=== PATIENT | female | born 1955 | race Caucasian/White ===

== ENCOUNTER 2016-10-30 11:24 | Inpatient (IN) | payer MEDICAID ==
[2016-10-30 11:57] LABS: % BASOPHILS 0.9 % (0.0-2.0); % EOSINOPHILS 1.3 % (0.0-5.0); % LYMPHOCYTES 42.6 % (20.0-50.0); % MONOCYTES 9.2 % (2.0-10.0); HEMOGLOBIN 14.4 gm/dL (11.7-15.5); MEAN CELL VOLUME 90.3 fl (81-100); MEAN CORPUSCULAR HEMOGLOBIN 30.6 pg (27.0-31.0); MEAN CORPUSCULAR HGB CONC 33.9 pg (28.0-36.0); NEUTROPHILE ABSOLUTE 2.8 Th/cmm (1.8-8.0); PLATELET COUNT 225 Th/cmm (150-400); RED CELL DISTRIBUTION WIDTH 12.6 % (11.5-20.0)
[2016-10-30 11:59] LABS: HEMATOCRIT 42.5 % (35.0-45.0); WHITE BLOOD COUNT 6.2 Th/cmm (4.8-10.8)
--- NOTE | 2016-10-30 12:13 | ED Physician Chart ---
ED Chief Complaint/HPI - Patient Information Date Seen:: 10/30/16 Time Seen:: 12:09 Chief Complaint:: DIARRHEA AND ABD CRAMPING SINCE LAST EVENING History of Present Illness:: The patient had 3 episodes of non-bloody diarrhea last evening following dinner. She also had a fourth episode early this a.m. The diarrhea was accompanied by a cramping pain that she rated as 8/10 in severity last evening and 1-2/10 this a.m. There were no relieving or exacerbating factors. The pain is localized to the right lower quadrant and does not radiate into the back or down into the right lower extremity. Patient denies any nausea or vomiting. She's had no chest pain or respiratory distress. She has a past medical history of both hypertension and diabetes. It was noted that her blood sugar was in the high 200 range earlier this a.m. Allergies:: Allergies Allergy/AdvReac Type Severity Reaction Status Date / Time No Known Allergies Allergy Verified 01/02/16 14:15 Vitals:: Vital Signs - 8 hr 10/30/16 11:26 Temp 97.3 F HR 67 RR 18 BP 140/90 O2 Sat % 94 ED Review of Systems - Review of Systems General/Constitutional: No chills, No weakness, No diaphoresis, No loss of appetite, Other (the patient believes that she had subjective fever last evening.) Skin: No skin lesions, No rash, No bruising Head: No headache, No light-headedness Eyes: No loss of vision, No pain, No diplopia ENT: No earache, No sore throat, No tinnitus Neck: No neck pain, No swelling, No thyromegaly, No stiffness, No mass noted Cardio Vascular: No chest pain, No palpitations, No edema Pulmonary: No SOB, Cough (patient had a dry cough recently. She is exposed to secondhand smoke by other members at the [id number].) GI: No nausea, No vomiting, Diarrhea, Pain, No hematochezia, No constipation, No hematemesis G/U: No dysuria, No frequency, No hematuria Applications Specialist: No vaginal discharge Musculoskeletal: No bone or joint pain, No muscle pain Endocrine: No polyuria, No polydipsia Psychiatric: Prior psych history, No depression, No suicidal ideation, Other ( schizoaffective disorder.) Hematopoietic: No bruising, No lymphadenopathy Allergic/Immuno: No urticaria, No angioedema Neurological: No syncope, No focal symptoms, No weakness, No paresthesia, No headache, No seizure, No dizziness, No confusion, No vertigo ED Past Medical History - Past Medical History Past Medical History: HTN, DM Social History: Non Smoker, No Alcohol, No Drug Use, Single, Care Facility Surgical History: None Psychiatricy History: Other (schizoaffective disorder) Medication: Reviewed Family Medical History - Family Member Nephew History Unknown: Yes Ethnicity: Living Status: Unknown Hx Family Cancer: (UNKNOWN) Hx Family Coronary Artery Disease: Yes (FATHER SIDE) Hx Family Congestive Heart Failure: (UNKNOWN) Hx Family Hypertension: Yes (FATHER SIDE) Hx Family Stroke: Yes (FATHER SIDE) Hx Family Diabetes: Yes (MOTHER SIDE) Hx Family Seizures: No Hx Family Dementia: No Hx Family AIDS: No Hx Family HIV: No Hx Family COPD: No Hx Family Hepatitis: No Hx Family Psychiatric Problems: No Hx Family Tuberculosis: No ED Physical Exam - Physical Examination General/Constitutional: Awake, Well-developed, well-nourished, Alert, No distress, GCS 15, Non-toxic appearing, Ambulatory Head: Atraumatic Eyes: Lids, conjuctiva normal, PERRL, EOMI Skin: Nl inspection, No rash, No skin lesions, No ecchymosis, Well hydrated, No lymphadenopathy ENMT: External ears, nose nl, TM canals nl, Nasal exam nl, Lips, teeth, gums nl , Oropharynx nl Neck: Nontender, No JVD, No nuchal rigidity, No mass, No stridor Respiratory: Nl effort/Exclusion, Clear to Auscultation, No Wheeze/Rhonchi/Rales Cardio Vascular: RRR, No murmur, gallop, rubs, NL S1 S2 Other Cardio Vascular comments:: Pulses all 4 extremities. GI: No tenderness/rebounding/guarding, No organomegaly, No hernia, Normal BS's, Nondistended, No mass/bruits, No McBurney tenderness Other GI comments:: Rectal examination deferred at my discretion. : No CVA tenderness Extremities: No tenderness or effusion, Full ROM, normal strength in all extremities, No edema Other Extremities comments:: Tenderness and normal Laurence's sign ED Labs/Radiology/EKG Results - Lab Results Results: Laboratory Tests 10/30/16 11:51 WBC 6.2 D RBC 4.70 Hgb 14.4 Hct 42.5 D MCV 90.3 MCH 30.6 MCHC Differential 33.9 RDW 12.6 Plt Count 225 MPV 8.0 Neutrophils % 46.0 Lymphocytes % 42.6 Monocytes % 9.2 Eosinophils % 1.3 Basophils % 0.9 Laboratory Tests 10/30/16 10/30/16 10/30/16 11:51 11:51 11:51 WBC 6.2 D RBC 4.70 Hgb 14.4 Hct 42.5 D MCV 90.3 MCH 30.6 MCHC Differential 33.9 RDW 12.6 Plt Count 225 MPV 8.0 Neutrophils % 46.0 Lymphocytes % 42.6 Monocytes % 9.2 Eosinophils % 1.3 Basophils % 0.9 Sodium 130 L Potassium 4.1 Chloride 102 Carbon Dioxide 22.1 Anion Gap 10.0 BUN 17 Creatinine 0.9 Est GFR ( Amer) > 60.0 Est GFR (Non-Af Amer) > 60.0 BUN/Creatinine Ratio 18.9 Glucose 292 H Hemoglobin A1c % Whole Bld Lactic Acid 1.57 Calcium 9.8 Total Bilirubin 0.4 AST 28 ALT 19 Alkaline Phosphatase 78 Total Protein 6.8 Albumin 3.9 Globulin 2.9 Albumin/Globulin Ratio 1.3 Amylase Urine Color Urine Clarity Urine pH Ur Specific [place] Urine Protein Urine Glucose (UA) Urine Ketones Urine Blood Urine Nitrate Urine Bilirubin Urine Urobilinogen Ur Leukocyte Esterase Urine RBC Urine WBC Ur Epithelial Cells Urine Bacteria 10/30/16 10/30/16 10/30/16 11:51 11:51 12:30 WBC RBC Hgb Hct MCV MCH MCHC Differential RDW Plt Count MPV Neutrophils % Lymphocytes % Monocytes % Eosinophils % Basophils % Sodium Potassium Chloride Carbon Dioxide Anion Gap BUN Creatinine Est GFR ( Amer) Est GFR (Non-Af Amer) BUN/Creatinine Ratio Glucose Hemoglobin A1c % 14.1 H Whole Bld Lactic Acid Calcium Total Bilirubin AST ALT Alkaline Phosphatase Total Protein Albumin Globulin Albumin/Globulin Ratio Amylase 17 L Urine Color YELLOW Urine Clarity SLIGHT CLOUDY Urine pH 6.0 Ur Specific [place] 1.010 Urine Protein NEGATIVE Urine Glucose (UA) >=1000 H Urine Ketones NEGATIVE Urine Blood NEGATIVE Urine Nitrate NEGATIVE Urine Bilirubin NEGATIVE Urine Urobilinogen 0.2 Ur Leukocyte Esterase NEGATIVE Urine RBC NONE SEEN Urine WBC NONE SEEN Ur Epithelial Cells OCCASIONAL Urine Bacteria NONE SEEN ED Assessment - Assessment General Assessment: CASE SUMMARY: the 61-year-old female presents with four episodes of diarrhea that began last evening. The diarrhea was accompanied by cramping abdominal pain predominantly in the lower abdomen. The patient had no associated vomiting , fever or chills. On physical examination the abdomen was soft with mild tenderness in both the right and the left lower quadrant. Laboratory studies showed hyperglycemia in the 300 range, no leukocytosis, normal renal function studies in normal hepatic function studies. CT scan of the abdomen and pelvis was positive for cholelithiasis and a 5.8 solid mass extending from the lower pole of the left kidney. This was suspicious for possible malignancy. The case was discussed with Dr. Lockwood and the patient was admitted to his service for further diagnostic evaluation and treatment as indicated. MDM DDX DIARRHEA AND ABDOMINAL CRAMPING: NOT Acute cholecystitis based on the CT scan. NOT Acute pancreatitis based on a low amylase level. NOT Acute appendicitis based on negative CT scan of the abdomen. NOT Acute pyelonephritis based on negative urinalysis. NOT Ischemic bowel disease based on the patient's history, physical examination and laboratory studies. Also the CT scan was negative for any evidence of ischemic colitis. NOT Ketoacidosis based on laboratory studies. ED Septic Shock - . Is Septic Shock (SBP<90, OR Lactate>4 mmol\L) present?: No - <6hrs of presentation: Vital Signs: Vital Signs - 8 hr 10/30/16 11:26 Temp 97.3 F HR 67 RR 18 BP 140/90 O2 Sat % 94 ED Reassessment (Disposition) - Reassessment Reassessment Condition:: Improved - Diagnosis Diagnosis:: DIABETES WITH HYPERGLYCEMIA, DIARRHEA UNCLEAR CAUSE, LT RENAL MASS - Aftercare/Follow up Instructions Aftercare/Follow-Up Instructions:: Counseled pt regarding lab results/diagnosis & need follow up ( This is) - Patient Disposition Discharge/Transfer:: Acute Care w/in this hosp Accepting Physician:: DR. FARIAS ED Discharge Plan - Patient Disposition Admit/Discharge/Transfer: Acute Care w/in this hosp Condition at Disposition: Improved
[2016-10-30 12:14] LABS: ALB/GLOB RATIO 1.3 (1.0-1.8); ALKALINE PHOSPHATASE 78 U/L (34-104); BILIRUBIN,TOTAL 0.4 mg/dL (0.3-1.0); BUN - UREA NITROGEN 17 mg/dL (7-25); BUN/CREATININE RATIO 18.9; CALCIUM SERUM 9.8 mg/dL (8.6-10.3); CARBON DIOXIDE 22.1 mEq/L (21.0-31.0); CHLORIDE 102 mEq/L (98-107); CREATININE - SERUM 0.9 mg/dL (0.6-1.2); GLUCOSE 292 mg/dL (70-105); POTASSIUM SERUM 4.1 mEq/L (3.5-5.1); SGOT 28 U/L (13-39); SGPT/ALT 19 U/L (7-52); SODIUM SERUM 130 mEq/L (136-145)
[2016-10-30] MEDS ORDERED: Sodium Chloride 0.9% 2,000 ML IV ONE (12:41)
[2016-10-30 12:50] LABS: URINE BILIRUBIN NEGATIVE (NEGATIVE); URINE BLOOD NEGATIVE (NEGATIVE); URINE COLOR YELLOW; URINE GLUCOSE (UA) >=1000 mg/dL (NEGATIVE); URINE KETONE NEGATIVE (NEGATIVE); URINE PROTEIN NEGATIVE (NEGATIVE); URINE UROBILINOGEN 0.2 E.U./dL (0.2 - 1.0)
[2016-10-30 12:52] LABS: URINE BACTERIA NONE SEEN /hpf (NONE SEEN); URINE EPITHELIAL CELLS OCCASIONAL /lpf (FEW); URINE RBC NONE SEEN /hpf (0-5); URINE WBC NONE SEEN /hpf (0-5)
--- NOTE | 2016-10-30 14:43 | Internal Medicine Prog Note ---
Internal Medicine Subjective - Subjective Service Date: 10/30/16 ([id number]) Internal Medicine Objective - Results Result Diagrams: 10/30/16 11:51 10/30/16 11:51 Recent Labs: Laboratory Last Values WBC 6.2 Th/cmm (4.8-10.8) D 10/30/16 11:51 RBC 4.70 Mil/cmm (3.80-5.10) 10/30/16 11:51 Hgb 14.4 gm/dL (11.7-15.5) 10/30/16 11:51 Hct 42.5 % (35.0-45.0) D 10/30/16 11:51 MCV 90.3 fl (81-100) 10/30/16 11:51 MCH 30.6 pg (27.0-31.0) 10/30/16 11:51 MCHC Differential 33.9 pg (28.0-36.0) 10/30/16 11:51 RDW 12.6 % (11.5-20.0) 10/30/16 11:51 Plt Count 225 Th/cmm (150-400) 10/30/16 11:51 MPV 8.0 fl 10/30/16 11:51 Neutrophils % 46.0 % (40.0-80.0) 10/30/16 11:51 Lymphocytes % 42.6 % (20.0-50.0) 10/30/16 11:51 Monocytes % 9.2 % (2.0-10.0) 10/30/16 11:51 Eosinophils % 1.3 % (0.0-5.0) 10/30/16 11:51 Basophils % 0.9 % (0.0-2.0) 10/30/16 11:51 Sodium 130 mEq/L (136-145) L 10/30/16 11:51 Potassium 4.1 mEq/L (3.5-5.1) 10/30/16 11:51 Chloride 102 mEq/L (98-107) 10/30/16 11:51 Carbon Dioxide 22.1 mEq/L (21.0-31.0) 10/30/16 11:51 Anion Gap 10.0 (7.0-16.0) 10/30/16 11:51 BUN 17 mg/dL (7-25) 10/30/16 11:51 Creatinine 0.9 mg/dL (0.6-1.2) 10/30/16 11:51 Est GFR ( Amer) > 60.0 ml/min (>90) 10/30/16 11:51 Est GFR (Non-Af Amer) > 60.0 ml/min 10/30/16 11:51 BUN/Creatinine Ratio 18.9 10/30/16 11:51 Glucose 292 mg/dL (70-105) H 10/30/16 11:51 Hemoglobin A1c % 14.1 % (4.0-6.0) H 10/30/16 11:51 Whole Bld Lactic Acid 1.57 mmol/L (0.60-1.99) 10/30/16 11:51 Calcium 9.8 mg/dL (8.6-10.3) 10/30/16 11:51 Total Bilirubin 0.4 mg/dL (0.3-1.0) 10/30/16 11:51 AST 28 U/L (13-39) 10/30/16 11:51 ALT 19 U/L (7-52) 10/30/16 11:51 Alkaline Phosphatase 78 U/L (34-104) 10/30/16 11:51 Total Protein 6.8 gm/dL (6.0-8.3) 10/30/16 11:51 Albumin 3.9 gm/dL (3.7-5.3) 10/30/16 11:51 Globulin 2.9 gm/dL 10/30/16 11:51 Albumin/Globulin Ratio 1.3 (1.0-1.8) 10/30/16 11:51 Amylase 17 U/L (29-103) L 10/30/16 11:51 Urine Source RANDOM 10/30/16 12:30 Urine Color YELLOW 10/30/16 12:30 Urine Clarity SLIGHT CLOUDY (CLEAR) 10/30/16 12:30 Urine pH 6.0 (4.6 - 8.0) 10/30/16 12:30 Ur Specific [place] 1.010 (1.005-1.030) 10/30/16 12:30 Urine Protein NEGATIVE mg/dL (NEGATIVE) 10/30/16 12:30 Urine Glucose (UA) >=1000 mg/dL (NEGATIVE) H 10/30/16 12:30 Urine Ketones NEGATIVE mg/dL (NEGATIVE) 10/30/16 12:30 Urine Blood NEGATIVE (NEGATIVE) 10/30/16 12:30 Urine Nitrate NEGATIVE (NEGATIVE) 10/30/16 12:30 Urine Bilirubin NEGATIVE (NEGATIVE) 10/30/16 12:30 Urine Urobilinogen 0.2 E.U./dL (0.2 - 1.0) 10/30/16 12:30 Ur Leukocyte Esterase NEGATIVE (NEGATIVE) 10/30/16 12:30 Urine RBC NONE SEEN /hpf (0-5) 10/30/16 12:30 Urine WBC NONE SEEN /hpf (0-5) 10/30/16 12:30 Ur Epithelial Cells OCCASIONAL /lpf (FEW) 10/30/16 12:30 Urine Bacteria NONE SEEN /hpf (NONE SEEN) 10/30/16 12:30 - Physical Exam Vitals and I&O: Vital Signs Temp 98.0 F 10/30/16 13:51 Pulse 66 10/30/16 13:51 Resp 18 10/30/16 13:51 BP 127/71 10/30/16 13:51 Pulse Ox 99 10/30/16 13:51 Active Medications: Current Medications Sodium Chloride (Nacl 0.9%) 2,000 mls @ 0 mls/hr IV .Q0M ONE PRN Reason: Wide Open Stop: 10/30/16 12:42 Last Admin: 10/30/16 12:52 Dose: 999 mls/hr Internal Medicine Assmt/Plan - Assessment Assessment: INTRACTABLE DIARRHEA HYPONATREMIA DM-2 HTN
[2016-10-30] MEDS ORDERED: Albuterol Nebulizer 2.5mg/3mL HHN PRN (14:49)
[2016-10-30] MEDS ORDERED: Ipratropium Neb 0.5 mg/2.5 mL UD HHN PRN (14:49)
[2016-10-30] MEDS ORDERED: Maalox 30 mL Cup PO PRN (14:49)
[2016-10-30] MEDS ORDERED: guaiFENesin 200 MG/10 ML UDC PO PRN (14:49)
[2016-10-30] MEDS ORDERED: D5-0.9%NS 1,000 ML IV SCH (15:00)
--- NOTE | 2016-10-30 16:30 | History & Physical ---
ADMIT DATE: 10/30/2016 CHIEF COMPLAINT: Intractable diarrhea and abdominal cramping. HISTORY OF PRESENT ILLNESS: This is a 61-year-old female who is a resident of [facility] who is brought here to [facility] for 1-day history of diarrhea, abdominal cramping and nausea. According to the patient, after she ate dinner last night, the patient had 3 episodes of diarrhea and around the middle of the night, the patient stated that she even had more diarrhea. For this reason, the patient was brought to the ER by her caregiver. The patient denies any chest pain or shortness of breath. PAST MEDICAL HISTORY: Hypertension, diabetes. SOCIAL HISTORY: The patient is a [facility] resident. PAST SURGICAL HISTORY: None per patient. PSYCHIATRIC HISTORY: Schizoaffective. MEDICATIONS: Please see medication reconciliation record. REVIEW OF SYSTEMS: GENERAL: Denies any fevers or chills. CARDIOVASCULAR: Denies any chest pain. RESPIRATORY: Denies any shortness of breath. GASTROINTESTINAL: Denies any nausea, vomiting or any diarrhea at this time. GENITOURINARY: Denies dysuria. All other systems are reviewed by me negative. PHYSICAL EXAMINATION: EXTREMITIES: The patient is well developed, well nourished, no acute distress. VITAL SIGNS: Temperature 98.0, heart rate 66, blood pressure 137/71, respirations 18, O2 99. HEENT: Head: Normocephalic, atraumatic. NECK: Supple. No mass. LUNGS: Clear bilaterally. HEART: Regular rate and rhythm. ABDOMEN: Soft, nontender. LABORATORY DATA: WBC 6.2, H and H 14.4 and 42.5, platelets 225. Sodium 130, potassium 4.1, chloride 102, BUN 17, creatinine 0.9, hemoglobin A1c of 14.1. Amylase of 17. ASSESSMENT: Intractable diarrhea, abdominal pain, hyponatremia, hypertension, diabetes. PLAN: The patient to be admitted to the med/surg unit. The patient will have a GI consultation with Dr. Suarez. The patient will be kept on a full liquid diet. We will send stool for cultures. IV fluids for hydration. Continue to monitor the patient. JOB# [id number]
[2016-10-30] MEDS: Sodium Chloride 0.9% 1,000 ML IV SCH (16:47)
[2016-10-30] MEDS: Insulin Detemir 100 units/mL 10mL Vial SUBQ SCH (20:54)
[2016-10-31] MEDS: Sodium Chloride 0.9% 1,000 ML IV SCH (04:55)
[2016-10-31 07:15] LABS: % EOSINOPHILS 0.9 % (0.0-5.0)
[2016-10-31 07:23] LABS: % LYMPHOCYTES 37.7 % (20.0-50.0); % MONOCYTES 9.4 % (2.0-10.0); HEMATOCRIT 46.3 % (35.0-45.0); HEMOGLOBIN 15.6 gm/dL (11.7-15.5); MEAN CELL VOLUME 90.4 fl (81-100); MEAN CORPUSCULAR HEMOGLOBIN 30.4 pg (27.0-31.0); MEAN CORPUSCULAR HGB CONC 33.7 pg (28.0-36.0); MEAN PLATELET VOLUME 8.8 fl; NEUTROPHILE ABSOLUTE 3.3 Th/cmm (1.8-8.0); PLATELET COUNT 244 Th/cmm (150-400); RED BLOOD COUNT 5.12 Mil/cmm (3.80-5.10); WHITE BLOOD COUNT 6.5 Th/cmm (4.8-10.8)
[2016-10-31 07:37] LABS: ANION GAP 9.1 (7.0-16.0); BUN - UREA NITROGEN 10 mg/dL (7-25); BUN/CREATININE RATIO 12.5; CALCIUM SERUM 10.1 mg/dL (8.6-10.3); CARBON DIOXIDE 25.9 mEq/L (21.0-31.0); CHLORIDE 101 mEq/L (98-107); CREATININE - SERUM 0.8 mg/dL (0.6-1.2); GLUCOSE 223 mg/dL (70-105); SODIUM SERUM 132 mEq/L (136-145)
[2016-10-31] MEDS: Ferrous Sulfate 325 MG TAB PO SCH (08:58)
--- NOTE | 2016-10-31 10:38 | Internal Medicine Prog Note ---
Internal Medicine Subjective - Subjective Service Date: 10/31/16 Patient seen and examined:: with staff Patient is:: awake Per staff patient has:: no adverse event Internal Medicine Objective - Results Result Diagrams: 10/31/16 06:10 10/31/16 06:10 Recent Labs: Laboratory Last Values WBC 6.5 Th/cmm (4.8-10.8) 10/31/16 06:10 RBC 5.12 Mil/cmm (3.80-5.10) H 10/31/16 06:10 Hgb 15.6 gm/dL (11.7-15.5) H 10/31/16 06:10 Hct 46.3 % (35.0-45.0) H 10/31/16 06:10 MCV 90.4 fl (81-100) 10/31/16 06:10 MCH 30.4 pg (27.0-31.0) 10/31/16 06:10 MCHC Differential 33.7 pg (28.0-36.0) 10/31/16 06:10 RDW 13.0 % (11.5-20.0) 10/31/16 06:10 Plt Count 244 Th/cmm (150-400) 10/31/16 06:10 MPV 8.8 fl 10/31/16 06:10 Neutrophils % 52.0 % (40.0-80.0) 10/31/16 06:10 Lymphocytes % 37.7 % (20.0-50.0) 10/31/16 06:10 Monocytes % 9.4 % (2.0-10.0) 10/31/16 06:10 Eosinophils % 0.9 % (0.0-5.0) 10/31/16 06:10 Basophils % 0.0 % (0.0-2.0) 10/31/16 06:10 Sodium 132 mEq/L (136-145) L 10/31/16 06:10 Potassium 4.0 mEq/L (3.5-5.1) 10/31/16 06:10 Chloride 101 mEq/L (98-107) 10/31/16 06:10 Carbon Dioxide 25.9 mEq/L (21.0-31.0) 10/31/16 06:10 Anion Gap 9.1 (7.0-16.0) 10/31/16 06:10 BUN 10 mg/dL (7-25) 10/31/16 06:10 Creatinine 0.8 mg/dL (0.6-1.2) 10/31/16 06:10 Est GFR ( Amer) > 60.0 ml/min (>90) 10/31/16 06:10 Est GFR (Non-Af Amer) > 60.0 ml/min 10/31/16 06:10 BUN/Creatinine Ratio 12.5 10/31/16 06:10 Glucose 223 mg/dL (70-105) H 10/31/16 06:10 POC Glucose 242 MG/DL (70 - 105) H 10/31/16 06:38 Hemoglobin A1c % 14.1 % (4.0-6.0) H 10/30/16 11:51 Whole Bld Lactic Acid 1.57 mmol/L (0.60-1.99) 10/30/16 11:51 Calcium 10.1 mg/dL (8.6-10.3) 10/31/16 06:10 Total Bilirubin 0.4 mg/dL (0.3-1.0) 10/30/16 11:51 AST 28 U/L (13-39) 10/30/16 11:51 ALT 19 U/L (7-52) 10/30/16 11:51 Alkaline Phosphatase 78 U/L (34-104) 10/30/16 11:51 Total Protein 6.8 gm/dL (6.0-8.3) 10/30/16 11:51 Albumin 3.9 gm/dL (3.7-5.3) 10/30/16 11:51 Globulin 2.9 gm/dL 10/30/16 11:51 Albumin/Globulin Ratio 1.3 (1.0-1.8) 10/30/16 11:51 Amylase 17 U/L (29-103) L 10/30/16 11:51 Urine Source RANDOM 10/30/16 12:30 Urine Color YELLOW 10/30/16 12:30 Urine Clarity SLIGHT CLOUDY (CLEAR) 10/30/16 12:30 Urine pH 6.0 (4.6 - 8.0) 10/30/16 12:30 Ur Specific [place] 1.010 (1.005-1.030) 10/30/16 12:30 Urine Protein NEGATIVE mg/dL (NEGATIVE) 10/30/16 12:30 Urine Glucose (UA) >=1000 mg/dL (NEGATIVE) H 10/30/16 12:30 Urine Ketones NEGATIVE mg/dL (NEGATIVE) 10/30/16 12:30 Urine Blood NEGATIVE (NEGATIVE) 10/30/16 12:30 Urine Nitrate NEGATIVE (NEGATIVE) 10/30/16 12:30 Urine Bilirubin NEGATIVE (NEGATIVE) 10/30/16 12:30 Urine Urobilinogen 0.2 E.U./dL (0.2 - 1.0) 10/30/16 12:30 Ur Leukocyte Esterase NEGATIVE (NEGATIVE) 10/30/16 12:30 Urine RBC NONE SEEN /hpf (0-5) 10/30/16 12:30 Urine WBC NONE SEEN /hpf (0-5) 10/30/16 12:30 Ur Epithelial Cells OCCASIONAL /lpf (FEW) 10/30/16 12:30 Urine Bacteria NONE SEEN /hpf (NONE SEEN) 10/30/16 12:30 - Physical Exam Vitals and I&O: Vital Signs Temp 99.1 F 10/31/16 09:00 Pulse 87 10/31/16 09:00 Resp 20 10/31/16 09:00 BP 155/79 10/31/16 09:00 Pulse Ox 97 10/31/16 09:00 Intake & Output 10/30/16 10/31/16 10/31/16 18:59 06:59 18:59 Intake Total 1500 Balance 1500 Weight (lbs) 145 lb 152 lb 12.8 oz Intake: Intake, IV Amount 1000 Sodium Chloride 0.9% 1, 1000 000 ml @ 100 mls/hr IV . Q10H ALONDRA Rx#:[id number] Oral 500 Other: # Voids 4 # Bowel Movements 0 Stool Characteristics Liquid Liquid Brown Active Medications: Current Medications Acetaminophen (Tylenol) 650 mg PO Q4HR PRN PRN Reason: Pain Or Fever above 101 Stop: 12/29/16 14:48 Al Hydrox/Mg Hydrox/Simethicone (Maalox) 30 ml PO Q6HR PRN PRN Reason: Dyspepsia Stop: 12/29/16 14:48 Albuterol Sulfate (Albuterol 2.5mg/3ml Neb Ud) 2.5 mg HHN Q2HRT PRN PRN Reason: Shortness of Breath or Wheeze Stop: 12/29/16 14:48 Alprazolam (Xanax) 0.25 mg PO DAILY ALONDRA PRN Reason: Protocol Stop: 12/30/16 08:59 Divalproex Sodium (Depakote Dr) 500 mg PO HS ALONDRA PRN Reason: Protocol Stop: 12/29/16 20:59 Escitalopram Oxalate (Lexapro) 20 mg PO DAILY ALONDRA PRN Reason: Protocol Stop: 12/30/16 08:59 Ferrous Sulfate (Iron) 325 mg PO DAILY ALONDRA Stop: 12/30/16 08:59 Last Admin: 10/31/16 08:58 Dose: 325 mg Gemfibrozil (Lopid) 600 mg PO BIDAC ALONDRA Stop: 12/29/16 16:29 Last Admin: 10/31/16 08:57 Dose: 600 mg Sodium Chloride (Nacl 0.9%) 1,000 mls @ 100 mls/hr IV .Q10H ALONDRA Stop: 12/29/16 14:59 Last Admin: 10/31/16 04:55 Dose: 100 mls/hr Insulin Detemir (Levemir Insulin) 20 units SUBQ HS [facility] Stop: 12/29/16 20:59 Last Admin: 10/30/16 20:54 Dose: 20 units Ipratropium [place] (Atrovent Neb 0.5mg/2.5ml) 0.5 mg HHN Q2HRT PRN PRN Reason: Shortness of Breath or Wheeze Stop: 12/29/16 14:48 Loratadine (Claritin) 10 mg PO DAILY [facility] Stop: 12/30/16 08:59 Last Admin: 10/31/16 08:58 Dose: 10 mg Ondansetron HCl (Zofran) 4 mg IV Q8H PRN PRN Reason: Nausea / Vomiting Stop: 12/29/16 14:48 Quetiapine Fumarate (Seroquel) 400 mg PO HS ALONDRA PRN Reason: Protocol Stop: 12/29/16 20:59 Temazepam (Restoril) 15 mg PO HS PRN; Protocol PRN Reason: SLEEP Stop: 12/29/16 20:59 General: weak, alert HEENT: NC/AT, PERRLA Neck: Supple Lungs: CTAB Cardiovascular: RRR, Normal S1, Normal S2, without murmur Abdomen: soft, non-tender, non-distended, positive bowel sound Extremities: excoriation Neurological: alert Internal Medicine Assmt/Plan - Assessment Assessment: INTRACTABLE DIARRHEA HYPONATREMIA DM-2 HTN - Plan Plan: ivf for hydration am labs collect stool for cx gi f/u continue current plan of care
[2016-10-31] MEDS ORDERED: INSULIN ASPART, RECOMBINANT 100 UNITS/ML SUBQ ONE ×2 (13:15)
[2016-10-31] MEDS: INSULIN ASPART SLIDING SCALE 100 UNITS/ML UNIT SUBQ SCH ×3 (14:13→20:59)
--- NOTE | 2016-10-31 14:33 | Diagnostic Imaging Report ---
CT scan abdomen and pelvis without intravenous contrast HISTORY: Diarrhea Total DLP equals 542 CTDI equals 10.4 Axial sections were obtained from the xiphoid process down to the pubic symphysis. The liver exhibits a bulbous contour. There is suggestion of a decrease in overall hepatic parenchymal density. The findings may be associated with fatty infiltration and should be correlated with liver function tests. No focal lesions. Multiple intraluminal calcification seen in the gallbladder consistent with cholelithiasis. The spleen is normal in size. No definite focal pancreatic lesions. The right kidney demonstrates mild perinephric stranding. No discrete focal lesions. No hydronephrosis. There is an approximate 5.8 cm solid mass extending off the lower pole of the left kidney. This is indeterminate. However the overall appearance is suspicious for malignancy. A scan following administration of intravenous contrast to provide additional characterization. No hydronephrosis. No bowel dilatation. Several diverticula scattered through the colon. The exam of the pelvis demonstrates preservation of normal fat planes. No abnormal soft tissue masses or abnormal fluid collections. Atherosclerotic calcification is noted. Degenerative changes seen within the spine. IMPRESSION: 1. Solid left renal mass worrisome for malignancy. A CT scan following administration of intravenous contrast would provide additional characterization. 2. Bilateral perinephric stranding. Changes related to inflammatory change or sequelae cannot be excluded. 3. Findings consistent with cholelithiasis 4. Diverticulosis
[2016-10-31] MEDS: Insulin Detemir 100 units/mL 10mL Vial SUBQ SCH (21:31)
--- NOTE | 2016-10-31 23:10 | Consultation ---
DATE OF CONSULTATION: 10/31/2016 The patient was seen, chart reviewed, discussed with staff. HISTORY OF PRESENT ILLNESS: The patient is a 61-year-old female with a history of schizoaffective disorder, admitted to medical floor with some abdominal cramping and diarrhea. The patient has been cooperative, said she is taking her medications. Denied feeling depressed, said that she has a history of mental illness, but she feels her medications are helping. She is currently on Seroquel and Lexapro. PAST PSYCHIATRIC HISTORY: Prior hospitalizations, history of schizoaffective disorder. PAST MEDICAL HISTORY: Diabetes, hypertension, and diarrhea. PSYCHOSOCIAL HISTORY: The patient resides in a [facility] facility. MENTAL STATUS EXAMINATION: The patient was cooperative, makes fair eye contact, slightly disheveled. Speech is monotonous. Affect is constricted. No audiovisual hallucinations, no delusional thoughts, no suicidal thoughts. She is oriented x 3. ASSESSMENT: Schizoaffective disorder. PLAN: We will continue Lexapro 20 mg daily, Seroquel 400 mg p.o. at bedtime, Ativan 0.5 mg q.6 hours p.r.n. anxiety. We will provide supportive measures. We will monitor closely. Thank you for the consultation. [facility]# [id number]
--- NOTE | 2016-10-31 23:38 | Consultation ---
DATE OF CONSULTATION: 10/31/2016 INPATIENT GASTROINTESTINAL CONSULTATION REFERRING PHYSICIAN: Dr. Lockwood. REASON FOR CONSULTATION: Diarrhea. HISTORY OF PRESENT ILLNESS: A 61-year-old female from a skilled facility, was brought to the hospital because of 1 day of diarrhea. The patient by the time I am seeing her states that her diarrhea has resolved. She has had formed stools and the nurse corroborates her story. The patient denies having any abdominal pain, nausea, vomiting, diarrhea at this time. Denies having any melena, hematochezia, hematemesis, or coffee ground emesis. PAST MEDICAL HISTORY: Hypertension, diabetes, schizoaffective disorder. PAST SURGICAL HISTORY: None to . FAMILY HISTORY: Noncontributory. SOCIAL HISTORY: No tobacco, alcohol or IV drug usage. Resident of a skilled facility. ALLERGIES: None. CURRENT MEDICATIONS: Tylenol, Maalox, albuterol, Xanax, Depakote, Lexapro, iron, Lopid, Levemir, Atrovent, Claritin, Zofran, Seroquel, and Restoril. REVIEW OF SYSTEMS: Ten point review of system was performed and the pertinent positive is diarrhea that has since resolved and schizoaffective disorder. All other systems were otherwise within normal limits. PHYSICAL EXAMINATION: VITAL SIGNS: Temperature 99, breathing 20, pulse of 93, blood pressure 150/88, satting 96%. GENERAL: In no apparent distress. EYES: Anicteric, normal conjunctivae. HEENT: Normocephalic, atraumatic. Moist mucous membranes. NECK: Soft, supple. CHEST: Clear. No effort. CARDIOVASCULAR: Regular rate and rhythm. ABDOMEN: Soft, nontender, nondistended. SKIN: Warm, dry. EXTREMITIES: Reveal no cyanosis. PSYCHOLOGIC: Alert and oriented x 3. LABORATORY DATA: Show white count 6.5, hemoglobin 15.6, platelets of 244. Total bilirubin 0.4, AST 28, ALT 19, alkaline phosphatase 78. IMPRESSION: A 61-year-old female with diarrhea that has since resolved. Etiology remains unknown, could have been due to medication, could have been due to an infection. The patient has not had a CAT scan; therefore I have ordered a CAT scan to further evaluate the colon. Stools studies should also be sent as well. PLAN: 1. Check CT abdomen and pelvis. 2. Check stool studies. 3. Continue supportive care. 4. Consider screening colonoscopy as an outpatient since the patient has never had one done. The patient should see her primary care provider to arrange this. Thank you for allowing me to participate. Please call me if there are any questions. JOB# [id number]
[2016-11-01] MEDS: INSULIN ASPART SLIDING SCALE 100 UNITS/ML UNIT SUBQ SCH ×4 (06:57→21:16)
[2016-11-01] MEDS: Ferrous Sulfate 325 MG TAB PO SCH (09:34)
--- NOTE | 2016-11-01 11:28 | Diagnostic Imaging Report ---
Ultrasound abdomen HISTORY: Abdominal pain COMPARISON: CT abdomen and pelvis performed on 10/31/2016 Technique: Sonography of the abdomen was performed in multiple planes. FINDINGS: The liver demonstrates increased echogenicity echogenicity with no evidence of focal lesions. The liver measures 18.5 cm. Gallstones are noted. The gallbladder wall measures 4 mm. The common bile duct measures 4 mm. Evaluation of the pancreas is limited due to bowel gas. The right kidney measures 12.3 x 5 cm . No evidence of focal lesions or hydronephrosis. The left kidney measures 11.2 x 5.2 cm. There is a left renal mass measuring 5.5 x 5.6 cm arising from the lower aspect of the kidney. Vascularity within the mass is noted. No evidence of hydronephrosis. The spleen measures 9.5 cm. IMPRESSION: 5.5 x 5.6 cm left renal mass most likely due to neoplastic process, possible renal cell carcinoma when compared to previous CT examination. Short-term follow-up CT renal mass protocol is recommended for further assessment. Cholelithiasis with mild prominent gallbladder wall. Please correlate clinically. If indicated, follow-up nuclear medicine HIDA scan may be obtained for further assessment Mild hepatomegaly with increased echogenicity of the liver which may be due to underlying fatty infiltration.
[2016-11-01] MEDS: Sodium Chloride 0.9% 1,000 ML IV SCH (11:55)
--- NOTE | 2016-11-01 12:20 | Internal Medicine Prog Note ---
Internal Medicine Subjective - Subjective Service Date: 11/01/16 (c/o abdominal pain) Patient seen and examined:: with staff Patient is:: awake Per staff patient has:: no adverse event Internal Medicine Objective - Results Result Diagrams: 10/31/16 06:10 10/31/16 06:10 Recent Labs: Laboratory Last Values WBC 6.5 Th/cmm (4.8-10.8) 10/31/16 06:10 RBC 5.12 Mil/cmm (3.80-5.10) H 10/31/16 06:10 Hgb 15.6 gm/dL (11.7-15.5) H 10/31/16 06:10 Hct 46.3 % (35.0-45.0) H 10/31/16 06:10 MCV 90.4 fl (81-100) 10/31/16 06:10 MCH 30.4 pg (27.0-31.0) 10/31/16 06:10 MCHC Differential 33.7 pg (28.0-36.0) 10/31/16 06:10 RDW 13.0 % (11.5-20.0) 10/31/16 06:10 Plt Count 244 Th/cmm (150-400) 10/31/16 06:10 MPV 8.8 fl 10/31/16 06:10 Neutrophils % 52.0 % (40.0-80.0) 10/31/16 06:10 Lymphocytes % 37.7 % (20.0-50.0) 10/31/16 06:10 Monocytes % 9.4 % (2.0-10.0) 10/31/16 06:10 Eosinophils % 0.9 % (0.0-5.0) 10/31/16 06:10 Basophils % 0.0 % (0.0-2.0) 10/31/16 06:10 Sodium 132 mEq/L (136-145) L 10/31/16 06:10 Potassium 4.0 mEq/L (3.5-5.1) 10/31/16 06:10 Chloride 101 mEq/L (98-107) 10/31/16 06:10 Carbon Dioxide 25.9 mEq/L (21.0-31.0) 10/31/16 06:10 Anion Gap 9.1 (7.0-16.0) 10/31/16 06:10 BUN 10 mg/dL (7-25) 10/31/16 06:10 Creatinine 0.8 mg/dL (0.6-1.2) 10/31/16 06:10 Est GFR ( Amer) > 60.0 ml/min (>90) 10/31/16 06:10 Est GFR (Non-Af Amer) > 60.0 ml/min 10/31/16 06:10 BUN/Creatinine Ratio 12.5 10/31/16 06:10 Glucose 223 mg/dL (70-105) H 10/31/16 06:10 POC Glucose 303 MG/DL (70 - 105) H 11/01/16 11:40 Hemoglobin A1c % 14.1 % (4.0-6.0) H 10/30/16 11:51 Whole Bld Lactic Acid 1.57 mmol/L (0.60-1.99) 10/30/16 11:51 Calcium 10.1 mg/dL (8.6-10.3) 10/31/16 06:10 Total Bilirubin 0.4 mg/dL (0.3-1.0) 10/30/16 11:51 AST 28 U/L (13-39) 10/30/16 11:51 ALT 19 U/L (7-52) 10/30/16 11:51 Alkaline Phosphatase 78 U/L (34-104) 10/30/16 11:51 Total Protein 6.8 gm/dL (6.0-8.3) 10/30/16 11:51 Albumin 3.9 gm/dL (3.7-5.3) 10/30/16 11:51 Globulin 2.9 gm/dL 10/30/16 11:51 Albumin/Globulin Ratio 1.3 (1.0-1.8) 10/30/16 11:51 Amylase 17 U/L (29-103) L 10/30/16 11:51 Urine Source RANDOM 10/30/16 12:30 Urine Color YELLOW 10/30/16 12:30 Urine Clarity SLIGHT CLOUDY (CLEAR) 10/30/16 12:30 Urine pH 6.0 (4.6 - 8.0) 10/30/16 12:30 Ur Specific [place] 1.010 (1.005-1.030) 10/30/16 12:30 Urine Protein NEGATIVE mg/dL (NEGATIVE) 10/30/16 12:30 Urine Glucose (UA) >=1000 mg/dL (NEGATIVE) H 10/30/16 12:30 Urine Ketones NEGATIVE mg/dL (NEGATIVE) 10/30/16 12:30 Urine Blood NEGATIVE (NEGATIVE) 10/30/16 12:30 Urine Nitrate NEGATIVE (NEGATIVE) 10/30/16 12:30 Urine Bilirubin NEGATIVE (NEGATIVE) 10/30/16 12:30 Urine Urobilinogen 0.2 E.U./dL (0.2 - 1.0) 10/30/16 12:30 Ur Leukocyte Esterase NEGATIVE (NEGATIVE) 10/30/16 12:30 Urine RBC NONE SEEN /hpf (0-5) 10/30/16 12:30 Urine WBC NONE SEEN /hpf (0-5) 10/30/16 12:30 Ur Epithelial Cells OCCASIONAL /lpf (FEW) 10/30/16 12:30 Urine Bacteria NONE SEEN /hpf (NONE SEEN) 10/30/16 12:30 - Physical Exam Vitals and I&O: Vital Signs Temp 99 F 11/01/16 08:00 Pulse 101 11/01/16 08:00 Resp 19 11/01/16 08:00 BP 108/73 11/01/16 08:00 Pulse Ox 100 11/01/16 08:00 Intake & Output 10/31/16 11/01/16 11/01/16 18:59 06:59 18:59 Intake Total 1600 400 Balance 1600 400 Weight (lbs) 152 lb 12.8 oz 150 lb 12.8 oz Intake: Intake, IV Amount 1000 Sodium Chloride 0.9% 1, 1000 000 ml @ 100 mls/hr IV . Q10H [facility] Rx#:[id number] Oral 600 400 Other: # Voids 5 3 # Bowel Movements 1 1 Stool Characteristics Formed Formed Brown Brown Active Medications: Current Medications Acetaminophen (Tylenol) 650 mg PO Q4HR PRN PRN Reason: Pain Or Fever above 101 Stop: 12/29/16 14:48 Al Hydrox/Mg Hydrox/Simethicone (Maalox) 30 ml PO Q6HR PRN PRN Reason: Dyspepsia Stop: 12/29/16 14:48 Albuterol Sulfate (Albuterol 2.5mg/3ml Neb Ud) 2.5 mg HHN Q2HRT PRN PRN Reason: Shortness of Breath or Wheeze Stop: 12/29/16 14:48 Alprazolam (Xanax) 0.25 mg PO DAILY [facility] PRN Reason: Protocol Stop: 12/30/16 08:59 Last Admin: 11/01/16 09:33 Dose: Not Given Divalproex Sodium (Depakote Dr) 500 mg PO [facility] PRN Reason: Protocol Stop: 12/29/16 20:59 Last Admin: 10/31/16 21:08 Dose: Not Given Escitalopram Oxalate (Lexapro) 20 mg PO DAILY [facility] PRN Reason: Protocol Stop: 12/30/16 08:59 Last Admin: 11/01/16 09:33 Dose: Not Given Ferrous Sulfate (Iron) 325 mg PO DAILY [facility] Stop: 12/30/16 08:59 Last Admin: 11/01/16 09:34 Dose: Not Given Gemfibrozil (Lopid) 600 mg PO BIDAC [facility] Stop: 12/29/16 16:29 Last Admin: 11/01/16 06:57 Dose: Not Given Sodium Chloride (Nacl 0.9%) 1,000 mls @ 100 mls/hr IV .Q10H [facility] Stop: 12/29/16 14:59 Last Admin: 11/01/16 11:55 Dose: 100 mls/hr Insulin Aspart (Novolog Insulin Sliding Scale) 0 units SUBQ ACHS [facility] PRN Reason: Protocol Stop: 12/30/16 16:29 Last Admin: 11/01/16 11:46 Dose: Not Given Insulin Detemir (Levemir Insulin) 20 units SUBQ HS [facility] Stop: 12/29/16 20:59 Last Admin: 10/31/16 21:31 Dose: Not Given Ipratropium [place] (Atrovent Neb 0.5mg/2.5ml) 0.5 mg HHN Q2HRT PRN PRN Reason: Shortness of Breath or Wheeze Stop: 12/29/16 14:48 Loratadine (Claritin) 10 mg PO DAILY [facility] Stop: 12/30/16 08:59 Last Admin: 11/01/16 09:34 Dose: Not Given Ondansetron HCl (Zofran) 4 mg IV Q8H PRN PRN Reason: Nausea / Vomiting Stop: 12/29/16 14:48 Quetiapine Fumarate (Seroquel) 400 mg PO HS ALONDRA PRN Reason: Protocol Stop: 12/29/16 20:59 Last Admin: 10/31/16 21:33 Dose: 400 mg Temazepam (Restoril) 15 mg PO HS PRN; Protocol PRN Reason: SLEEP Stop: 12/29/16 20:59 General: weak, alert HEENT: NC/AT, PERRLA Neck: Supple Lungs: CTAB Cardiovascular: RRR, Normal S1, Normal S2, without murmur Abdomen: soft, non-tender, non-distended, positive bowel sound Extremities: excoriation Neurological: alert Internal Medicine Assmt/Plan - Assessment Assessment: INTRACTABLE DIARRHEA HYPONATREMIA DM-2 HTN - Plan Plan: ivf for hydration am labs collect stool for cx gi f/u continue current plan of care Nutritional Asmnt/Malnutr-PDOC - Dietary Evaluation Malnutrition Findings (Please click <Entered> for more info): Nutritional Asmnt/Malnutrition Start: 10/31/16 15: 54 Text: Status: Complete Freq: Document 10/31/16 15:54 GSUN (Rec: 10/31/16 16:05 GSUN [id number]) Nutritional Asmnt/Malnutrition Patient General Information Nutritional Screening Consult Diagnosis Intractable diarrhea, abdominal pain, HTN, DM, hyponatremia Pertinent Medical Hx/Surgical Hx HTN, DM Subjective Information 61 year old female admitted for intractable diarrhea. RD consult for elevated BG. CT abdomen today "solid left renal mass worrisome for malignancy, cholelithiasis, diverticulosis." Spoke to RN Pina and pt, formed stools, no diarrhea since adm. Pt is aware of being diabetic and able to name DM meds, however poor [facility] diet knowledge. RD provided basic DM education, pt was receptive, no further questions at this time. Pt usually with great appetite. UBW 156lb. No muscle fat wasting. Current Diet Order/ Nutrition Support Full liquid Pertinent Medications Iron, Novolog, Levemir, Zofran Pertinent Labs 10/30: 14.1H 10/31: glucose 223H POC glucose 242-399 since adm Nutritional Hx/Data Height 5 ft 1 in Height (Calculated Centimeters) 154.9 Current Weight (lbs) 152 lb 4.8 oz Weight (Calculated Kilograms) 69.1 Weight (Calculated Grams) 20334.1 Usual body Weight (lbs) 156 Robinson Body Weight 105 Weight Status Overweight GI Symptoms Skin Integrity/Comment: Lukasz 23. Skin intact. Estimated Nutritional Goals BEE in Kcals: Adj wt of IBW Calories/Kcals/Kg AdjBW 116.8lb/53.1kg Kcals Calculated 1328-1593kcal (25-30kcal/kg) Protein: Adj wt of IBW Protein Calculated 53g (1g/kg) Fluid: ml 1328-1593ml (1ml/kcal) Nutritional Problem 1. Problem Problem Altered nutrition related laboratory values related to Etiology DM aeb Signs/Symptoms: A1c 14.1, glucose 292 on adm Intervention/Recommendation Comments 1. When appropriate to resume diet, recommend [id number]. 2. Provided basic DM nutrition education. Pt with poor prior knowledge, unable to recognize carbohydrates with misconceptions. Pt was receptive of information and appeared with better understnading after education. Pt may benefit from further education. Expected Outcomes/Goals Expected Outcomes/Goals 1. PO intake to resume solid foods and meet at least 75% of estimated nutritional needs.
[2016-11-01] MEDS ORDERED: IOHEXOL 300MG/ML 100 ML VIAL IVP ONE (12:55)
--- NOTE | 2016-11-01 15:42 | Diagnostic Imaging Report ---
CT abdomen and pelvis with IV contrast renal mass protocol Indication: Left renal mass Comparison: CT abdomen and pelvis 10/31/2016 Technique: Axial images were obtained from the lung bases to the bilateral proximal femurs with IV contrast, renal mass protocol . Reconstructions were made. 2063, [id number] FINDINGS: Hypoventilatory atelectatic changes of the lung bases are noted. There is fatty infiltration of the liver with no evidence of focal lesions. Small gallstones are noted. No focal splenic lesions. Pancreatic gland atrophy is seen with no evidence of focal lesions. No focal adrenal lesions. There is a large 6 x 5 cm left renal mass with irregular peripheral enhancement arising from the inferior pole. Nonspecific bilateral perinephric inflammatory changes are noted. No hydronephrosis. Mild atherosclerosis is noted. Few nonenlarged retroperitoneal lymph nodes are noted bilaterally. Mild degenerative changes of spine are noted. IMPRESSION: 6 x 5 cm inferior pole left renal mass with heterogeneous and irregular enhancement primarily along the peripheral portions. This may represent neoplastic etiology such as renal cell carcinoma. Other less likely mass lesions would include renal oncocytoma. Few borderline prominent retroperitoneal lymph nodes nonspecific, however, follow-up surveillance is recommended given patient's clinical findings. Nonspecific bilateral perinephric inflammatory changes. Gallstones. Hepatic steatosis. Mild atherosclerotic vascular disease.
[2016-11-01] MEDS: Insulin Detemir 100 units/mL 10mL Vial SUBQ SCH (21:15)
--- NOTE | 2016-11-01 22:55 | Progress Notes ---
DATE: 11/01/2016 SUBJECTIVE: The patient was seen, discussed with staff, chart reviewed. Reports fair sleep. Still somewhat anxious, but not hearing voices. MENTAL STATUS EXAMINATION: The patient is cooperative. Speech fluent, not pressured. No audiovisual hallucinations. She is oriented x 3. No suicidal thoughts. ASSESSMENT: We will continue medications at current doses. The patient is tolerating Seroquel 400 mg at bedtime and she is also on Xanax as needed, Depakote, and Lexapro. [facility]# [id number]
[2016-11-02 06:41] LABS: HEMATOCRIT 44.4 % (35.0-45.0); HEMOGLOBIN 15.2 gm/dL (11.7-15.5); MEAN CORPUSCULAR HEMOGLOBIN 30.8 pg (27.0-31.0); MEAN CORPUSCULAR HGB CONC 34.2 pg (28.0-36.0); PLATELET COUNT 234 Th/cmm (150-400); RED BLOOD COUNT 4.93 Mil/cmm (3.80-5.10); RED CELL DISTRIBUTION WIDTH 13.1 % (11.5-20.0); WHITE BLOOD COUNT 6.5 Th/cmm (4.8-10.8)
[2016-11-02 07:02] LABS: BUN - UREA NITROGEN 13 mg/dL (7-25); BUN/CREATININE RATIO 14.4; CALCIUM SERUM 10.1 mg/dL (8.6-10.3); CARBON DIOXIDE 23.8 mEq/L (21.0-31.0); CHLORIDE 104 mEq/L (98-107); CREATININE - SERUM 0.9 mg/dL (0.6-1.2); GLUCOSE 246 mg/dL (70-105); POTASSIUM SERUM 3.8 mEq/L (3.5-5.1); SODIUM SERUM 134 mEq/L (136-145)
[2016-11-02] MEDS: Ferrous Sulfate 325 MG TAB PO SCH (08:27)
[2016-11-02] MEDS: INSULIN ASPART SLIDING SCALE 100 UNITS/ML UNIT SUBQ SCH ×4 (08:28→21:37)
[2016-11-02 08:36] LABS: BAND NEUTROPHILE 3 % (0-10); EOSINOPHIL 3 % (0-5); NEUTROPHILS 39 % (40-80); PLATELET ESTIMATE ADEQUATE (NORMAL); PLATELET MORPHOLOGY NORMAL (NORMAL); TOTAL CELLS COUNTED 100
[2016-11-02] MEDS: Sodium Chloride 0.9% 1,000 ML IV SCH ×2 (09:11→17:43)
--- NOTE | 2016-11-02 13:22 | Consultation ---
DATE OF CONSULTATION: 11/02/2016 RENAL CONSULTATION NOTE HISTORY OF PRESENT ILLNESS: This is a 61-year-old who is a resident of [facility] coming here to the hospital through Emergency Room because of episodes of diarrhea and abdominal cramping. It started the evening 2 days prior to being seen at this time. She had 4 episodes of diarrhea and subsequently brought into the hospital. ____ initial admission of the hospital with intractable diarrhea and abdominal pain. PAST MEDICAL HISTORY: Hypertension, diabetes. SOCIAL HISTORY: No alcohol, lives at a care facility, single, schizoaffective disorder with psychiatric followup. FAMILY HISTORY: Positive for coronary artery disease with father hypertension and stroke. Mother had a history of diabetes. REVIEW OF SYSTEMS: Essentially negative. PHYSICAL EXAMINATION: VITAL SIGNS: His temperature is 97.6, pulse rate of 73, blood pressure 125/64. GENERAL: She is obese. CHEST: Clear to auscultation. HEART: Regular sinus. ABDOMEN: Soft. Bowel sounds are present. Mild degree of distention, tympani ____. No masses that could be palpated, but with the ____ that the patient has some degree of obesity. LABORATORY STUDIES: Reviewed. White blood cell count is 6500, hemoglobin 15.2, and hematocrit of 44. Sodium 134, potassium 3.8, chloride of 104, CO2 of 23, BUN of 13, and creatinine of 0.9, glucose 246. Calcium is 10.1. She had abdominal and pelvic ultrasound, which is reported as 6 x 5 cm ____ left renal mass with heterogenous and irregular enhancement ____ along the peripheral portion, history represents a neoplastic etiology, likely a renal cell carcinoma, borderline prominent retroperitoneal lymph nodes are noted, nonspecific, however, surveillance recommended. IMPRESSION: Left renal mass, 6 x 5 cm, very likely malignant etiology, renal cell carcinoma is a consideration. This might not be the reason why this patient was admitted to the hospital and be precipitating the diarrhea, but this should be taken cared of. She should be referring to the facility ____, it could be done as an outpatient with the patient subsequently will be needing some kind of nephrectomy, possibly by laparoscopic nephrectomy in this patient. This could be done at ____ tertiary facility like [facility]. Case had been discussed with Dr. Lockwood who will try to discuss it with insurance and HMO of this patient. I have discussed this with this patient today and explained to her that possibility of needing left nephrectomy in this patient preferably with laparoscopic nephrectomy. [facility]# [id number]
--- NOTE | 2016-11-02 14:04 | Progress Notes ---
DATE: 11/02/2016 SUBJECTIVE: The patient was seen, chart reviewed, discussed with staff. Reports fair sleep, taking her medications, does not hear voices, ____ her chronic mental illness. The patient said that she is comfortable with her current medication regimen. The patient is currently taking Lexapro, Depakote and Seroquel. MENTAL STATUS EXAM: The patient is making good eye contact. No suicidal thoughts. No other visual hallucinations. She is oriented x 3. ASSESSMENT: Schizoaffective disorder. PLAN: We will continue medication management. Continue supportive measures. Monitor closely. JOB# [id number]
--- NOTE | 2016-11-02 15:09 | Internal Medicine Prog Note ---
Internal Medicine Subjective - Subjective Patient seen and examined:: with staff, chart reviewed Patient is:: awake Patient Complaints of:: bloated Per staff patient has:: no adverse event, agitated, noncompliant, tolerating meds Internal Medicine Objective - Results Result Diagrams: 11/02/16 06:24 11/02/16 06:24 Recent Labs: Laboratory Last Values WBC 6.5 Th/cmm (4.8-10.8) 11/02/16 06:24 RBC 4.93 Mil/cmm (3.80-5.10) 11/02/16 06:24 Hgb 15.2 gm/dL (11.7-15.5) 11/02/16 06:24 Hct 44.4 % (35.0-45.0) 11/02/16 06:24 MCV 90.0 fl (81-100) 11/02/16 06:24 MCH 30.8 pg (27.0-31.0) 11/02/16 06:24 MCHC Differential 34.2 pg (28.0-36.0) 11/02/16 06:24 RDW 13.1 % (11.5-20.0) 11/02/16 06:24 Plt Count 234 Th/cmm (150-400) 11/02/16 06:24 MPV 8.0 fl 11/02/16 06:24 Neutrophils % 52.0 % (40.0-80.0) 10/31/16 06:10 Band Neutrophils % 3 % (0-10) 11/02/16 06:24 Lymphocytes % 37.7 % (20.0-50.0) 10/31/16 06:10 Monocytes % 9.4 % (2.0-10.0) 10/31/16 06:10 Eosinophils % 0.9 % (0.0-5.0) 10/31/16 06:10 Basophils % 0.0 % (0.0-2.0) 10/31/16 06:10 Neutrophils (Manual) 39 % (40-80) L 11/02/16 06:24 Lymphocytes 42 % (20-50) 11/02/16 06:24 Monocytes 13 % (2-10) H 11/02/16 06:24 Eosinophils 3 % (0-5) 11/02/16 06:24 Platelet Estimate ADEQUATE (NORMAL) 11/02/16 06:24 Platelet Morphology NORMAL (NORMAL) 11/02/16 06:24 RBC Morph Micro Appear NORMAL (NORMAL) 11/02/16 06:24 Sodium 134 mEq/L (136-145) L 11/02/16 06:24 Potassium 3.8 mEq/L (3.5-5.1) 11/02/16 06:24 Chloride 104 mEq/L (98-107) 11/02/16 06:24 Carbon Dioxide 23.8 mEq/L (21.0-31.0) 11/02/16 06:24 Anion Gap 10.0 (7.0-16.0) 11/02/16 06:24 BUN 13 mg/dL (7-25) 11/02/16 06:24 Creatinine 0.9 mg/dL (0.6-1.2) 11/02/16 06:24 Est GFR ( Amer) > 60.0 ml/min (>90) 11/02/16 06:24 Est GFR (Non-Af Amer) > 60.0 ml/min 11/02/16 06:24 BUN/Creatinine Ratio 14.4 11/02/16 06:24 Glucose 246 mg/dL (70-105) H 11/02/16 06:24 POC Glucose 390 MG/DL (70 - 105) H 11/02/16 11:49 Hemoglobin A1c % 14.1 % (4.0-6.0) H 10/30/16 11:51 Whole Bld Lactic Acid 1.57 mmol/L (0.60-1.99) 10/30/16 11:51 Calcium 10.1 mg/dL (8.6-10.3) 11/02/16 06:24 Total Bilirubin 0.4 mg/dL (0.3-1.0) 10/30/16 11:51 AST 28 U/L (13-39) 10/30/16 11:51 ALT 19 U/L (7-52) 10/30/16 11:51 Alkaline Phosphatase 78 U/L (34-104) 10/30/16 11:51 Total Protein 6.8 gm/dL (6.0-8.3) 10/30/16 11:51 Albumin 3.9 gm/dL (3.7-5.3) 10/30/16 11:51 Globulin 2.9 gm/dL 10/30/16 11:51 Albumin/Globulin Ratio 1.3 (1.0-1.8) 10/30/16 11:51 Amylase 17 U/L (29-103) L 10/30/16 11:51 Urine Source RANDOM 10/30/16 12:30 Urine Color YELLOW 10/30/16 12:30 Urine Clarity SLIGHT CLOUDY (CLEAR) 10/30/16 12:30 Urine pH 6.0 (4.6 - 8.0) 10/30/16 12:30 Ur Specific [place] 1.010 (1.005-1.030) 10/30/16 12:30 Urine Protein NEGATIVE mg/dL (NEGATIVE) 10/30/16 12:30 Urine Glucose (UA) >=1000 mg/dL (NEGATIVE) H 10/30/16 12:30 Urine Ketones NEGATIVE mg/dL (NEGATIVE) 10/30/16 12:30 Urine Blood NEGATIVE (NEGATIVE) 10/30/16 12:30 Urine Nitrate NEGATIVE (NEGATIVE) 10/30/16 12:30 Urine Bilirubin NEGATIVE (NEGATIVE) 10/30/16 12:30 Urine Urobilinogen 0.2 E.U./dL (0.2 - 1.0) 10/30/16 12:30 Ur Leukocyte Esterase NEGATIVE (NEGATIVE) 10/30/16 12:30 Urine RBC NONE SEEN /hpf (0-5) 10/30/16 12:30 Urine WBC NONE SEEN /hpf (0-5) 10/30/16 12:30 Ur Epithelial Cells OCCASIONAL /lpf (FEW) 10/30/16 12:30 Urine Bacteria NONE SEEN /hpf (NONE SEEN) 10/30/16 12:30 - Physical Exam Vitals and I&O: Vital Signs Temp 98.4 F 11/02/16 12:00 Pulse 90 11/02/16 12:00 Resp 18 11/02/16 12:00 BP 124/67 11/02/16 12:00 Pulse Ox 94 11/02/16 12:00 Intake & Output 11/01/16 11/02/16 11/02/16 18:59 06:59 18:59 Intake Total 1300 Balance 1300 Weight (lbs) 68.039 kg 68.039 kg Intake: Intake, IV Amount 1000 Sodium Chloride 0.9% 1, 1000 000 ml @ 100 mls/hr IV . Q10H [facility] Rx#:[id number] Oral 300 Other: # Voids 2 # Bowel Movements 0 Stool Characteristics Formed Brown Active Medications: Current Medications Acetaminophen (Tylenol) 650 mg PO Q4HR PRN PRN Reason: Pain Or Fever above 101 Stop: 12/29/16 14:48 Al Hydrox/Mg Hydrox/Simethicone (Maalox) 30 ml PO Q6HR PRN PRN Reason: Dyspepsia Stop: 12/29/16 14:48 Albuterol Sulfate (Albuterol 2.5mg/3ml Neb Ud) 2.5 mg HHN Q2HRT PRN PRN Reason: Shortness of Breath or Wheeze Stop: 12/29/16 14:48 Alprazolam (Xanax) 0.25 mg PO DAILY [facility] PRN Reason: Protocol Stop: 12/30/16 08:59 Last Admin: 11/02/16 08:27 Dose: 0.25 mg Divalproex Sodium (Depakote Dr) 500 mg PO [facility] PRN Reason: Protocol Stop: 12/29/16 20:59 Last Admin: 11/01/16 21:18 Dose: 500 mg Escitalopram Oxalate (Lexapro) 20 mg PO DAILY [facility] PRN Reason: Protocol Stop: 12/30/16 08:59 Last Admin: 11/02/16 08:26 Dose: 20 mg Ferrous Sulfate (Iron) 325 mg PO DAILY [facility] Stop: 12/30/16 08:59 Last Admin: 11/02/16 08:27 Dose: 325 mg Gemfibrozil (Lopid) 600 mg PO BIDAC [facility] Stop: 12/29/16 16:29 Last Admin: 11/02/16 08:27 Dose: 600 mg Sodium Chloride (Nacl 0.9%) 1,000 mls @ 75 mls/hr IV .[id number] [facility] Stop: 12/29/16 14:59 Insulin Aspart (Novolog Insulin Sliding Scale) 0 units SUBQ ACHS [facility] PRN Reason: Protocol Stop: 12/30/16 16:29 Last Admin: 11/02/16 11:59 Dose: 15 units Insulin Detemir (Levemir Insulin) 20 units SUBQ HS [facility] Stop: 12/29/16 20:59 Last Admin: 11/01/16 21:15 Dose: 20 units Ipratropium [place] (Atrovent Neb 0.5mg/2.5ml) 0.5 mg HHN Q2HRT PRN PRN Reason: Shortness of Breath or Wheeze Stop: 12/29/16 14:48 Loratadine (Claritin) 10 mg PO DAILY [facility] Stop: 12/30/16 08:59 Last Admin: 11/02/16 08:27 Dose: 10 mg Ondansetron HCl (Zofran) 4 mg IV Q8H PRN PRN Reason: Nausea / Vomiting Stop: 12/29/16 14:48 Quetiapine Fumarate (Seroquel) 400 mg PO HS [facility] PRN Reason: Protocol Stop: 12/29/16 20:59 Last Admin: 11/01/16 21:18 Dose: 400 mg Temazepam (Restoril) 15 mg PO HS PRN; Protocol PRN Reason: SLEEP Stop: 12/29/16 20:59 General: weak, alert HEENT: NC/AT, PERRLA Neck: Supple Lungs: CTAB Cardiovascular: RRR, Normal S1, Normal S2, without murmur Abdomen: soft, non-tender, non-distended, positive bowel sound Extremities: excoriation Neurological: alert Internal Medicine Assmt/Plan - Assessment Assessment: renal mass abd pain INTRACTABLE DIARRHEA HYPONATREMIA DM-2 HTN - Plan Plan: - Plan Plan: ivf for hydration am labs collect stool for cx gi f/u continue current plan of care Nutritional Asmnt/Malnutr-PDOC - Dietary Evaluation Malnutrition Findings (Please click <Entered> for more info): Nutritional Asmnt/Malnutrition Start: 10/31/16 15: 54 Text: Status: Complete Freq: Document 10/31/16 15:54 GSUN (Rec: 10/31/16 16:05 GSUN [email or web address]) Nutritional Asmnt/Malnutrition Patient General Information Nutritional Screening Consult Diagnosis Intractable diarrhea, abdominal pain, HTN, DM, hyponatremia Pertinent Medical Hx/Surgical Hx HTN, DM Subjective Information 61 year old female admitted for intractable diarrhea. RD consult for elevated BG. CT abdomen today "solid left renal mass worrisome for malignancy, cholelithiasis, diverticulosis." Spoke to RN Pina and pt, formed stools, no diarrhea since adm. Pt is aware of being diabetic and able to name DM meds, however poor [facility] diet knowledge. RD provided basic DM education, pt was receptive, no further questions at this time. Pt usually with great appetite. UBW 156lb. No muscle fat wasting. Current Diet Order/ Nutrition Support Full liquid Pertinent Medications Iron, Novolog, Levemir, Zofran Pertinent Labs 10/30: 14.1H 10/31: glucose 223H POC glucose 242-399 since adm Nutritional Hx/Data Height 1.55 m Height (Calculated Centimeters) 154.9 Current Weight (lbs) 69.082 kg Weight (Calculated Kilograms) 69.1 Weight (Calculated Grams) 65078.1 Usual body Weight (lbs) 156 [place] Body Weight 105 Weight Status Overweight GI Symptoms Skin Integrity/Comment: Lukasz 23. Skin intact. Estimated Nutritional Goals BEE in Kcals: Adj wt of IBW Calories/Kcals/Kg AdjBW 116.8lb/53.1kg Kcals Calculated 1328-1593kcal (25-30kcal/kg) Protein: Adj wt of IBW Protein Calculated 53g (1g/kg) Fluid: ml 1328-1593ml (1ml/kcal) Nutritional Problem 1. Problem Problem Altered nutrition related laboratory values related to Etiology DM aeb Signs/Symptoms: A1c 14.1, glucose 292 on adm Intervention/Recommendation Comments 1. When appropriate to resume diet, recommend [id number]. 2. Provided basic DM nutrition education. Pt with poor prior knowledge, unable to recognize carbohydrates with misconceptions. Pt was receptive of information and appeared with better understnading after education. Pt may benefit from further education. Expected Outcomes/Goals Expected Outcomes/Goals 1. PO intake to resume solid foods and meet at least 75% of estimated nutritional needs.
[2016-11-02] MEDS: Insulin Detemir 100 units/mL 10mL Vial SUBQ SCH (21:40)
[2016-11-03] MEDS: Sodium Chloride 0.9% 1,000 ML IV SCH ×2 (05:04→13:20)
[2016-11-03] MEDS: INSULIN ASPART SLIDING SCALE 100 UNITS/ML UNIT SUBQ SCH ×4 (08:09→21:11)
[2016-11-03] MEDS: Ferrous Sulfate 325 MG TAB PO SCH (08:22)
--- NOTE | 2016-11-03 14:12 | Internal Medicine Prog Note ---
Internal Medicine Subjective - Subjective Patient seen and examined:: with staff, chart reviewed Patient is:: awake Patient Complaints of:: bloated Per staff patient has:: no adverse event, agitated, noncompliant, tolerating meds Internal Medicine Objective - Results Result Diagrams: 11/02/16 06:24 11/02/16 06:24 Recent Labs: Laboratory Last Values WBC 6.5 Th/cmm (4.8-10.8) 11/02/16 06:24 RBC 4.93 Mil/cmm (3.80-5.10) 11/02/16 06:24 Hgb 15.2 gm/dL (11.7-15.5) 11/02/16 06:24 Hct 44.4 % (35.0-45.0) 11/02/16 06:24 MCV 90.0 fl (81-100) 11/02/16 06:24 MCH 30.8 pg (27.0-31.0) 11/02/16 06:24 MCHC Differential 34.2 pg (28.0-36.0) 11/02/16 06:24 RDW 13.1 % (11.5-20.0) 11/02/16 06:24 Plt Count 234 Th/cmm (150-400) 11/02/16 06:24 MPV 8.0 fl 11/02/16 06:24 Neutrophils % 52.0 % (40.0-80.0) 10/31/16 06:10 Band Neutrophils % 3 % (0-10) 11/02/16 06:24 Lymphocytes % 37.7 % (20.0-50.0) 10/31/16 06:10 Monocytes % 9.4 % (2.0-10.0) 10/31/16 06:10 Eosinophils % 0.9 % (0.0-5.0) 10/31/16 06:10 Basophils % 0.0 % (0.0-2.0) 10/31/16 06:10 Neutrophils (Manual) 39 % (40-80) L 11/02/16 06:24 Lymphocytes 42 % (20-50) 11/02/16 06:24 Monocytes 13 % (2-10) H 11/02/16 06:24 Eosinophils 3 % (0-5) 11/02/16 06:24 Platelet Estimate ADEQUATE (NORMAL) 11/02/16 06:24 Platelet Morphology NORMAL (NORMAL) 11/02/16 06:24 RBC Morph Micro Appear NORMAL (NORMAL) 11/02/16 06:24 Sodium 134 mEq/L (136-145) L 11/02/16 06:24 Potassium 3.8 mEq/L (3.5-5.1) 11/02/16 06:24 Chloride 104 mEq/L (98-107) 11/02/16 06:24 Carbon Dioxide 23.8 mEq/L (21.0-31.0) 11/02/16 06:24 Anion Gap 10.0 (7.0-16.0) 11/02/16 06:24 BUN 13 mg/dL (7-25) 11/02/16 06:24 Creatinine 0.9 mg/dL (0.6-1.2) 11/02/16 06:24 Est GFR ( Amer) > 60.0 ml/min (>90) 11/02/16 06:24 Est GFR (Non-Af Amer) > 60.0 ml/min 11/02/16 06:24 BUN/Creatinine Ratio 14.4 11/02/16 06:24 Glucose 246 mg/dL (70-105) H 11/02/16 06:24 POC Glucose 305 MG/DL (70 - 105) H 11/03/16 11:50 Hemoglobin A1c % 14.1 % (4.0-6.0) H 10/30/16 11:51 Whole Bld Lactic Acid 1.57 mmol/L (0.60-1.99) 10/30/16 11:51 Calcium 10.1 mg/dL (8.6-10.3) 11/02/16 06:24 Total Bilirubin 0.4 mg/dL (0.3-1.0) 10/30/16 11:51 AST 28 U/L (13-39) 10/30/16 11:51 ALT 19 U/L (7-52) 10/30/16 11:51 Alkaline Phosphatase 78 U/L (34-104) 10/30/16 11:51 Total Protein 6.8 gm/dL (6.0-8.3) 10/30/16 11:51 Albumin 3.9 gm/dL (3.7-5.3) 10/30/16 11:51 Globulin 2.9 gm/dL 10/30/16 11:51 Albumin/Globulin Ratio 1.3 (1.0-1.8) 10/30/16 11:51 Amylase 17 U/L (29-103) L 10/30/16 11:51 Urine Source RANDOM 10/30/16 12:30 Urine Color YELLOW 10/30/16 12:30 Urine Clarity SLIGHT CLOUDY (CLEAR) 10/30/16 12:30 Urine pH 6.0 (4.6 - 8.0) 10/30/16 12:30 Ur Specific [place] 1.010 (1.005-1.030) 10/30/16 12:30 Urine Protein NEGATIVE mg/dL (NEGATIVE) 10/30/16 12:30 Urine Glucose (UA) >=1000 mg/dL (NEGATIVE) H 10/30/16 12:30 Urine Ketones NEGATIVE mg/dL (NEGATIVE) 10/30/16 12:30 Urine Blood NEGATIVE (NEGATIVE) 10/30/16 12:30 Urine Nitrate NEGATIVE (NEGATIVE) 10/30/16 12:30 Urine Bilirubin NEGATIVE (NEGATIVE) 10/30/16 12:30 Urine Urobilinogen 0.2 E.U./dL (0.2 - 1.0) 10/30/16 12:30 Ur Leukocyte Esterase NEGATIVE (NEGATIVE) 10/30/16 12:30 Urine RBC NONE SEEN /hpf (0-5) 10/30/16 12:30 Urine WBC NONE SEEN /hpf (0-5) 10/30/16 12:30 Ur Epithelial Cells OCCASIONAL /lpf (FEW) 10/30/16 12:30 Urine Bacteria NONE SEEN /hpf (NONE SEEN) 10/30/16 12:30 - Physical Exam Vitals and I&O: Vital Signs Temp 97.7 F 11/03/16 12:00 Pulse 87 11/03/16 12:00 Resp 16 11/03/16 12:00 BP 137/78 11/03/16 12:00 Pulse Ox 94 11/03/16 12:00 Intake & Output 11/02/16 11/03/16 11/03/16 18:59 06:59 18:59 Intake Total 800 851.25 620 Balance 800 851.25 620 Weight (lbs) 68.039 kg 70.307 kg Intake: Intake, IV Amount 851.25 620 Sodium Chloride 0.9% 1, 851.25 620 000 ml @ 75 mls/hr IV . [id number] [facility] Rx#:[id number] Oral 800 Other: # Voids 5 Active Medications: Current Medications Acetaminophen (Tylenol) 650 mg PO Q4HR PRN PRN Reason: Pain Or Fever above 101 Stop: 12/29/16 14:48 Al Hydrox/Mg Hydrox/Simethicone (Maalox) 30 ml PO Q6HR PRN PRN Reason: Dyspepsia Stop: 12/29/16 14:48 Albuterol Sulfate (Albuterol 2.5mg/3ml Neb Ud) 2.5 mg HHN Q2HRT PRN PRN Reason: Shortness of Breath or Wheeze Stop: 12/29/16 14:48 Alprazolam (Xanax) 0.25 mg PO DAILY [facility] PRN Reason: Protocol Stop: 12/30/16 08:59 Last Admin: 11/03/16 08:21 Dose: 0.25 mg Divalproex Sodium (Depakote Dr) 500 mg PO HS [facility] PRN Reason: Protocol Stop: 12/29/16 20:59 Last Admin: 11/02/16 21:47 Dose: 500 mg Escitalopram Oxalate (Lexapro) 20 mg PO DAILY [facility] PRN Reason: Protocol Stop: 12/30/16 08:59 Last Admin: 11/03/16 08:21 Dose: 20 mg Ferrous Sulfate (Iron) 325 mg PO DAILY [facility] Stop: 12/30/16 08:59 Last Admin: 11/03/16 08:22 Dose: 325 mg Gemfibrozil (Lopid) 600 mg PO BIDAC [facility] Stop: 12/29/16 16:29 Last Admin: 11/03/16 08:10 Dose: 600 mg Sodium Chloride (Nacl 0.9%) 1,000 mls @ 75 mls/hr IV .[id number] [facility] Stop: 12/29/16 14:59 Last Admin: 11/03/16 13:20 Dose: 75 mls/hr Insulin Aspart (Novolog Insulin Sliding Scale) 0 units SUBQ ACHS [facility] PRN Reason: Protocol Stop: 12/30/16 16:29 Last Admin: 11/03/16 12:00 Dose: 12 units Ipratropium [place] (Atrovent Neb 0.5mg/2.5ml) 0.5 mg HHN Q2HRT PRN PRN Reason: Shortness of Breath or Wheeze Stop: 12/29/16 14:48 Loratadine (Claritin) 10 mg PO DAILY [facility] Stop: 12/30/16 08:59 Last Admin: 11/03/16 08:22 Dose: 10 mg Ondansetron HCl (Zofran) 4 mg IV Q8H PRN PRN Reason: Nausea / Vomiting Stop: 12/29/16 14:48 Quetiapine Fumarate (Seroquel) 400 mg PO HS [facility] PRN Reason: Protocol Stop: 12/29/16 20:59 Last Admin: 11/02/16 21:47 Dose: 400 mg Temazepam (Restoril) 15 mg PO HS PRN; Protocol PRN Reason: SLEEP Stop: 12/29/16 20:59 General: weak, alert HEENT: NC/AT, PERRLA Neck: Supple Lungs: CTAB Cardiovascular: RRR, Normal S1, Normal S2, without murmur Abdomen: soft, non-tender, non-distended, positive bowel sound Extremities: excoriation Neurological: alert Internal Medicine Assmt/Plan - Assessment Assessment: renal mass abd pain INTRACTABLE DIARRHEA HYPONATREMIA DM-2 HTN - Plan Plan: - Plan Plan: ivf for hydration am labs collect stool for cx gi f/u continue current plan of care will refer to urology for renal mass resection, will have to work w cm of hmo Nutritional Asmnt/Malnutr-PDOC - Dietary Evaluation Malnutrition Findings (Please click <Entered> for more info): Nutritional Asmnt/Malnutrition Start: 10/31/16 15: 54 Text: Status: Complete Freq: Document 10/31/16 15:54 GSUN (Rec: 10/31/16 16:05 GSUN [id number]) Nutritional Asmnt/Malnutrition Patient General Information Nutritional Screening Consult Diagnosis Intractable diarrhea, abdominal pain, HTN, DM, hyponatremia Pertinent Medical Hx/Surgical Hx HTN, DM Subjective Information 61 year old female admitted for intractable diarrhea. RD consult for elevated BG. CT abdomen today "solid left renal mass worrisome for malignancy, cholelithiasis, diverticulosis." Spoke to RN Pina and pt, formed stools, no diarrhea since adm. Pt is aware of being diabetic and able to name DM meds, however poor [facility] diet knowledge. RD provided basic DM education, pt was receptive, no further questions at this time. Pt usually with great appetite. UBW 156lb. No muscle fat wasting. Current Diet Order/ Nutrition Support Full liquid Pertinent Medications Iron, Novolog, Levemir, Zofran Pertinent Labs 10/30: 14.1H 10/31: glucose 223H POC glucose 242-399 since adm Nutritional Hx/Data Height 1.55 m Height (Calculated Centimeters) 154.9 Current Weight (lbs) 69.082 kg Weight (Calculated Kilograms) 69.1 Weight (Calculated Grams) 58970.1 Usual body Weight (lbs) 156 [place] Body Weight 105 Weight Status Overweight GI Symptoms Skin Integrity/Comment: Lukasz 23. Skin intact. Estimated Nutritional Goals BEE in Kcals: Adj wt of IBW Calories/Kcals/Kg AdjBW 116.8lb/53.1kg Kcals Calculated 1328-1593kcal (25-30kcal/kg) Protein: Adj wt of IBW Protein Calculated 53g (1g/kg) Fluid: ml 1328-1593ml (1ml/kcal) Nutritional Problem 1. Problem Problem Altered nutrition related laboratory values related to Etiology DM aeb Signs/Symptoms: A1c 14.1, glucose 292 on adm Intervention/Recommendation Comments 1. When appropriate to resume diet, recommend [id number]. 2. Provided basic DM nutrition education. Pt with poor prior knowledge, unable to recognize carbohydrates with misconceptions. Pt was receptive of information and appeared with better understnading after education. Pt may benefit from further education. Expected Outcomes/Goals Expected Outcomes/Goals 1. PO intake to resume solid foods and meet at least 75% of estimated nutritional needs.
[2016-11-03] MEDS: Insulin Detemir 100 units/mL 10mL Vial SUBQ SCH (21:12)
[2016-11-04] MEDS: Sodium Chloride 0.9% 1,000 ML IV SCH ×2 (02:40→06:32)
[2016-11-04] MEDS: INSULIN ASPART SLIDING SCALE 100 UNITS/ML UNIT SUBQ SCH ×4 (06:31→21:20)
[2016-11-04] MEDS: Ferrous Sulfate 325 MG TAB PO SCH (09:09)
--- NOTE | 2016-11-04 11:28 | Internal Medicine Prog Note ---
Internal Medicine Subjective - Subjective Service Date: 11/04/16 Patient is:: awake Patient Complaints of:: bloated Per staff patient has:: no adverse event, agitated, noncompliant, tolerating meds Internal Medicine Objective - Results Result Diagrams: 11/02/16 06:24 11/02/16 06:24 Recent Labs: Laboratory Last Values WBC 6.5 Th/cmm (4.8-10.8) 11/02/16 06:24 RBC 4.93 Mil/cmm (3.80-5.10) 11/02/16 06:24 Hgb 15.2 gm/dL (11.7-15.5) 11/02/16 06:24 Hct 44.4 % (35.0-45.0) 11/02/16 06:24 MCV 90.0 fl (81-100) 11/02/16 06:24 MCH 30.8 pg (27.0-31.0) 11/02/16 06:24 MCHC Differential 34.2 pg (28.0-36.0) 11/02/16 06:24 RDW 13.1 % (11.5-20.0) 11/02/16 06:24 Plt Count 234 Th/cmm (150-400) 11/02/16 06:24 MPV 8.0 fl 11/02/16 06:24 Neutrophils % 52.0 % (40.0-80.0) 10/31/16 06:10 Band Neutrophils % 3 % (0-10) 11/02/16 06:24 Lymphocytes % 37.7 % (20.0-50.0) 10/31/16 06:10 Monocytes % 9.4 % (2.0-10.0) 10/31/16 06:10 Eosinophils % 0.9 % (0.0-5.0) 10/31/16 06:10 Basophils % 0.0 % (0.0-2.0) 10/31/16 06:10 Neutrophils (Manual) 39 % (40-80) L 11/02/16 06:24 Lymphocytes 42 % (20-50) 11/02/16 06:24 Monocytes 13 % (2-10) H 11/02/16 06:24 Eosinophils 3 % (0-5) 11/02/16 06:24 Platelet Estimate ADEQUATE (NORMAL) 11/02/16 06:24 Platelet Morphology NORMAL (NORMAL) 11/02/16 06:24 RBC Morph Micro Appear NORMAL (NORMAL) 11/02/16 06:24 Sodium 134 mEq/L (136-145) L 11/02/16 06:24 Potassium 3.8 mEq/L (3.5-5.1) 11/02/16 06:24 Chloride 104 mEq/L (98-107) 11/02/16 06:24 Carbon Dioxide 23.8 mEq/L (21.0-31.0) 11/02/16 06:24 Anion Gap 10.0 (7.0-16.0) 11/02/16 06:24 BUN 13 mg/dL (7-25) 11/02/16 06:24 Creatinine 0.9 mg/dL (0.6-1.2) 11/02/16 06:24 Est GFR ( Amer) > 60.0 ml/min (>90) 11/02/16 06:24 Est GFR (Non-Af Amer) > 60.0 ml/min 11/02/16 06:24 BUN/Creatinine Ratio 14.4 11/02/16 06:24 Glucose 246 mg/dL (70-105) H 11/02/16 06:24 POC Glucose 121 MG/DL (70-105) H 11/04/16 06:15 Hemoglobin A1c % 14.1 % (4.0-6.0) H 10/30/16 11:51 Whole Bld Lactic Acid 1.57 mmol/L (0.60-1.99) 10/30/16 11:51 Calcium 10.1 mg/dL (8.6-10.3) 11/02/16 06:24 Total Bilirubin 0.4 mg/dL (0.3-1.0) 10/30/16 11:51 AST 28 U/L (13-39) 10/30/16 11:51 ALT 19 U/L (7-52) 10/30/16 11:51 Alkaline Phosphatase 78 U/L (34-104) 10/30/16 11:51 Total Protein 6.8 gm/dL (6.0-8.3) 10/30/16 11:51 Albumin 3.9 gm/dL (3.7-5.3) 10/30/16 11:51 Globulin 2.9 gm/dL 10/30/16 11:51 Albumin/Globulin Ratio 1.3 (1.0-1.8) 10/30/16 11:51 Amylase 17 U/L (29-103) L 10/30/16 11:51 Urine Source RANDOM 10/30/16 12:30 Urine Color YELLOW 10/30/16 12:30 Urine Clarity SLIGHT CLOUDY (CLEAR) 10/30/16 12:30 Urine pH 6.0 (4.6 - 8.0) 10/30/16 12:30 Ur Specific [place] 1.010 (1.005-1.030) 10/30/16 12:30 Urine Protein NEGATIVE mg/dL (NEGATIVE) 10/30/16 12:30 Urine Glucose (UA) >=1000 mg/dL (NEGATIVE) H 10/30/16 12:30 Urine Ketones NEGATIVE mg/dL (NEGATIVE) 10/30/16 12:30 Urine Blood NEGATIVE (NEGATIVE) 10/30/16 12:30 Urine Nitrate NEGATIVE (NEGATIVE) 10/30/16 12:30 Urine Bilirubin NEGATIVE (NEGATIVE) 10/30/16 12:30 Urine Urobilinogen 0.2 E.U./dL (0.2 - 1.0) 10/30/16 12:30 Ur Leukocyte Esterase NEGATIVE (NEGATIVE) 10/30/16 12:30 Urine RBC NONE SEEN /hpf (0-5) 10/30/16 12:30 Urine WBC NONE SEEN /hpf (0-5) 10/30/16 12:30 Ur Epithelial Cells OCCASIONAL /lpf (FEW) 10/30/16 12:30 Urine Bacteria NONE SEEN /hpf (NONE SEEN) 10/30/16 12:30 - Physical Exam Vitals and I&O: Vital Signs Temp 98.0 F 11/04/16 04:41 Pulse 79 11/04/16 07:57 Resp 14 11/04/16 07:57 BP 130/82 11/04/16 04:41 Pulse Ox 92 11/04/16 07:57 Intake & Output 11/03/16 11/04/16 11/04/16 18:59 06:59 18:59 Intake Total 1245 1290 Balance 1245 1290 Weight (lbs) 155 lb 151 lb 11.2 oz Intake: Intake, IV Amount 620 1290 Sodium Chloride 0.9% 1, 620 1290 000 ml @ 75 mls/hr IV . [id number] [facility] Rx#:[id number] Oral 625 Other: # Voids 4 Active Medications: Current Medications Acetaminophen (Tylenol) 650 mg PO Q4HR PRN PRN Reason: Pain Or Fever above 101 Stop: 12/29/16 14:48 Al Hydrox/Mg Hydrox/Simethicone (Maalox) 30 ml PO Q6HR PRN PRN Reason: Dyspepsia Stop: 12/29/16 14:48 Albuterol Sulfate (Albuterol 2.5mg/3ml Neb Ud) 2.5 mg HHN Q2HRT PRN PRN Reason: Shortness of Breath or Wheeze Stop: 12/29/16 14:48 Alprazolam (Xanax) 0.25 mg PO DAILY [facility] PRN Reason: Protocol Stop: 12/30/16 08:59 Last Admin: 11/04/16 09:09 Dose: 0.25 mg Divalproex Sodium (Depakote Dr) 500 mg PO HS [facility] PRN Reason: Protocol Stop: 12/29/16 20:59 Last Admin: 11/03/16 21:00 Dose: 500 mg Escitalopram Oxalate (Lexapro) 20 mg PO DAILY [facility] PRN Reason: Protocol Stop: 12/30/16 08:59 Last Admin: 11/04/16 09:09 Dose: 20 mg Ferrous Sulfate (Iron) 325 mg PO DAILY [facility] Stop: 12/30/16 08:59 Last Admin: 11/04/16 09:09 Dose: 325 mg Gemfibrozil (Lopid) 600 mg PO BIDAC [facility] Stop: 12/29/16 16:29 Last Admin: 11/04/16 06:30 Dose: 600 mg Sodium Chloride (Nacl 0.9%) 1,000 mls @ 75 mls/hr IV .[id number] [facility] Stop: 12/29/16 14:59 Last Admin: 11/04/16 06:32 Dose: 75 mls/hr Insulin Aspart (Novolog Insulin Sliding Scale) 0 units SUBQ ACHS [facility]ON[facility] PRN Reason: Protocol Stop: 12/30/16 16:29 Last Admin: 11/04/16 06:31 Dose: Not Given Insulin Detemir (Levemir Insulin) 24 units SUBQ HS [facility] Stop: 12/29/16 20:59 Last Admin: 11/03/16 21:12 Dose: 24 units Ipratropium [place] (Atrovent Neb 0.5mg/2.5ml) 0.5 mg HHN Q2HRT PRN PRN Reason: Shortness of Breath or Wheeze Stop: 12/29/16 14:48 Loratadine (Claritin) 10 mg PO DAILY [facility] Stop: 12/30/16 08:59 Last Admin: 11/04/16 09:09 Dose: 10 mg Ondansetron HCl (Zofran) 4 mg IV Q8H PRN PRN Reason: Nausea / Vomiting Stop: 12/29/16 14:48 Quetiapine Fumarate (Seroquel) 400 mg PO HS [facility]ON[facility]A PRN Reason: Protocol Stop: 12/29/16 20:59 Last Admin: 11/03/16 21:00 Dose: 400 mg Temazepam (Restoril) 15 mg PO HS PRN; Protocol PRN Reason: SLEEP Stop: 12/29/16 20:59 Last Admin: 11/03/16 21:51 Dose: 15 mg General: weak, alert HEENT: NC/AT, PERRLA Neck: Supple Lungs: CTAB Cardiovascular: RRR, Normal S1, Normal S2, without murmur Abdomen: soft, non-tender, non-distended, positive bowel sound Extremities: excoriation Neurological: alert Internal Medicine Assmt/Plan - Assessment Assessment: RENAL MASS INTRACTABLE DIARRHEA -resolved HYPONATREMIA DM-2 HTN - Plan Plan: ivf for hydration am labs dependency case manager to arrange urology for renal mass resection continue current plan of care Nutritional Asmnt/Malnutr-PDOC - Dietary Evaluation Malnutrition Findings (Please click <Entered> for more info): Nutritional Asmnt/Malnutrition Start: 10/31/16 15: 54 Text: Status: Complete Freq: Document 10/31/16 15:54 GSUN (Rec: 10/31/16 16:05 GSUN [email or web address]) Nutritional Asmnt/Malnutrition Patient General Information Nutritional Screening Consult Diagnosis Intractable diarrhea, abdominal pain, HTN, DM, hyponatremia Pertinent Medical Hx/Surgical Hx HTN, DM Subjective Information 61 year old female admitted for intractable diarrhea. RD consult for elevated BG. CT abdomen today "solid left renal mass worrisome for malignancy, cholelithiasis, diverticulosis." Spoke to RN Pina and pt, formed stools, no diarrhea since adm. Pt is aware of being diabetic and able to name DM meds, however poor [facility] diet knowledge. RD provided basic DM education, pt was receptive, no further questions at this time. Pt usually with great appetite. UBW 156lb. No muscle fat wasting. Current Diet Order/ Nutrition Support Full liquid Pertinent Medications Iron, Novolog, Levemir, Zofran Pertinent Labs 10/30: 14.1H 10/31: glucose 223H POC glucose 242-399 since adm Nutritional Hx/Data Height 5 ft 1 in Height (Calculated Centimeters) 154.9 Current Weight (lbs) 152 lb 4.8 oz Weight (Calculated Kilograms) 69.1 Weight (Calculated Grams) 48448.1 Usual body Weight (lbs) 156 [place] Body Weight 105 Weight Status Overweight GI Symptoms Skin Integrity/Comment: Lukasz 23. Skin intact. Estimated Nutritional Goals BEE in Kcals: Adj wt of IBW Calories/Kcals/Kg AdjBW 116.8lb/53.1kg Kcals Calculated 1328-1593kcal (25-30kcal/kg) Protein: Adj wt of IBW Protein Calculated 53g (1g/kg) Fluid: ml 1328-1593ml (1ml/kcal) Nutritional Problem 1. Problem Problem Altered nutrition related laboratory values related to Etiology DM aeb Signs/Symptoms: A1c 14.1, glucose 292 on adm Intervention/Recommendation Comments 1. When appropriate to resume diet, recommend [id number]. 2. Provided basic DM nutrition education. Pt with poor prior knowledge, unable to recognize carbohydrates with misconceptions. Pt was receptive of information and appeared with better understnading after education. Pt may benefit from further education. Expected Outcomes/Goals Expected Outcomes/Goals 1. PO intake to resume solid foods and meet at least 75% of estimated nutritional needs.
[2016-11-04] MEDS: Insulin Detemir 100 units/mL 10mL Vial SUBQ SCH (21:19)
--- NOTE | 2016-11-05 03:30 | Admit Criteria Form ---
Admit Criteria Forms - Admit Criteria Diagnosis: ABDOMINAL PAIN Clinical Indications for Admission to Inpatient Care ( [facility]/check or initial the applicable condition/criteria): Admission is indicated for ANY ONE of the following (1)(2)(3)(4)(5)(6): [ ]I. Surgery needed that cannot be performed on ambulatory basis [ ]II. Peritoneal signs present (eg, rebound tenderness, rigidity) [ ]III. Evaluation requires patient to not eat or drink for extended period ( eg, more than 24 hours). [X ]IV. Inpatient admission required[B] rather than observation care (see Abdominal Pain: Observation Care guideline as appropriate) because of ANY ONE of the following(7)(8)(9): [ ] a) Hemodynamic instability [X ]b) Severe pain requiring acute inpatient management [X ]c) Identification of etiology or finding that requires inpatient care (eg, aortic dissection, free air,bowel ischemia)(10) [ ]d) Absent bowel sounds with complete ileus (11) [ ]e) Signs of intestinal obstruction[C] [ ]f) Suspected toxic megacolon [ ]g) Severe electrolyte abnormalities requiring inpatient care [ ]h) High fever or infection requiring inpatient admission as indicated by ANY ONE of the following (12)(13): [ ]i) Appropriate outpatient or observation care antimicrobial treatment unavailable, not effective, or not feasible [ ]ii) Documented bacteremia [ ]iii) Temperature greater than 104.9 degrees F (40.5 degrees C) (oral) [ ]iv) Temperature greater than 103.1 degrees F (39.5 degrees C) ( oral) or less than 96.8 degrees F (36 degrees C) (rectal) that does not respond to all emergency treatment measures [ ]i) IV fluid required rather than oral rehydration to replace significant ongoing (eg, for greater than 24 hours) losses (greater than 3 L/m2 per day)(14)(15) [ ]j) Percutaneous or open drainage (eg, abscess, biliary tract) procedures [ ]k) Parenteral nutrition regimen that must be implemented on inpatient basis [ ]l) Other condition, treatment, or monitoring requiring inpatient admission Extended stay beyond goal length of stay may be needed for (1)(3)(4)(10)(16): [ ]a) Surgery (e.g., colectomy, revascularization procedure) [ ]b) Persistent abdominal pain with suspected intra-abdominal process [ ]c) Diagnosed condition requiring continued stay (e.g., pancreatitis, complicated diverticulitis) The original [facility] content created by [facility] has been revised. The portions of the content which have been revised are identified through the use of italic text or in bold, and [facility] has neither reviewed nor approved the modified material.All other unmodified content is copyright [facility]. Please see references footnoted in the [facility] 2017 Admit Criteria Met?: Yes
[2016-11-05 06:14] LABS: % EOSINOPHILS 2.2 % (0.0-5.0); % LYMPHOCYTES 53.2 % (20.0-50.0); % MONOCYTES 11.1 % (2.0-10.0); % NEUTROPHILS 33.5 % (40.0-80.0); HEMATOCRIT 42.6 % (35.0-45.0); HEMOGLOBIN 14.3 gm/dL (11.7-15.5); MEAN CELL VOLUME 91.2 fl (81-100); MEAN CORPUSCULAR HEMOGLOBIN 30.5 pg (27.0-31.0); MEAN CORPUSCULAR HGB CONC 33.5 pg (28.0-36.0); MEAN PLATELET VOLUME 8.7 fl; NEUTROPHILE ABSOLUTE 2.2 Th/cmm (1.8-8.0); PLATELET COUNT 233 Th/cmm (150-400); RED BLOOD COUNT 4.67 Mil/cmm (3.80-5.10); RED CELL DISTRIBUTION WIDTH 12.4 % (11.5-20.0); WHITE BLOOD COUNT 6.7 Th/cmm (4.8-10.8)
[2016-11-05 06:24] LABS: ANION GAP 9.4 (7.0-16.0); BUN - UREA NITROGEN 12 mg/dL (7-25); CARBON DIOXIDE 24.5 mEq/L (21.0-31.0); CHLORIDE 103 mEq/L (98-107); CREATININE - SERUM 0.8 mg/dL (0.6-1.2); GLUCOSE 184 mg/dL (70-105); POTASSIUM SERUM 3.9 mEq/L (3.5-5.1); SODIUM SERUM 133 mEq/L (136-145)
[2016-11-05] MEDS: INSULIN ASPART SLIDING SCALE 100 UNITS/ML UNIT SUBQ SCH ×4 (06:31→20:44)
[2016-11-05] MEDS: Ferrous Sulfate 325 MG TAB PO SCH (09:37)
--- NOTE | 2016-11-05 11:40 | Internal Medicine Prog Note ---
Internal Medicine Subjective - Subjective Service Date: 11/05/16 Patient is:: awake Patient Complaints of:: bloated Per staff patient has:: no adverse event, agitated, noncompliant, tolerating meds Internal Medicine Objective - Results Result Diagrams: 11/05/16 05:10 11/05/16 05:10 Recent Labs: Laboratory Last Values WBC 6.7 Th/cmm (4.8-10.8) 11/05/16 05:10 RBC 4.67 Mil/cmm (3.80-5.10) 11/05/16 05:10 Hgb 14.3 gm/dL (11.7-15.5) 11/05/16 05:10 Hct 42.6 % (35.0-45.0) 11/05/16 05:10 MCV 91.2 fl (81-100) 11/05/16 05:10 MCH 30.5 pg (27.0-31.0) 11/05/16 05:10 MCHC Differential 33.5 pg (28.0-36.0) 11/05/16 05:10 RDW 12.4 % (11.5-20.0) 11/05/16 05:10 Plt Count 233 Th/cmm (150-400) 11/05/16 05:10 MPV 8.7 fl 11/05/16 05:10 Neutrophils % 33.5 % (40.0-80.0) L 11/05/16 05:10 Band Neutrophils % 3 % (0-10) 11/02/16 06:24 Lymphocytes % 53.2 % (20.0-50.0) H 11/05/16 05:10 Monocytes % 11.1 % (2.0-10.0) H 11/05/16 05:10 Eosinophils % 2.2 % (0.0-5.0) 11/05/16 05:10 Basophils % 0.0 % (0.0-2.0) 11/05/16 05:10 Neutrophils (Manual) 39 % (40-80) L 11/02/16 06:24 Lymphocytes 42 % (20-50) 11/02/16 06:24 Monocytes 13 % (2-10) H 11/02/16 06:24 Eosinophils 3 % (0-5) 11/02/16 06:24 Platelet Estimate ADEQUATE (NORMAL) 11/02/16 06:24 Platelet Morphology NORMAL (NORMAL) 11/02/16 06:24 RBC Morph Micro Appear NORMAL (NORMAL) 11/02/16 06:24 Sodium 133 mEq/L (136-145) L 11/05/16 05:10 Potassium 3.9 mEq/L (3.5-5.1) 11/05/16 05:10 Chloride 103 mEq/L (98-107) 11/05/16 05:10 Carbon Dioxide 24.5 mEq/L (21.0-31.0) 11/05/16 05:10 Anion Gap 9.4 (7.0-16.0) 11/05/16 05:10 BUN 12 mg/dL (7-25) 11/05/16 05:10 Creatinine 0.8 mg/dL (0.6-1.2) 11/05/16 05:10 Est GFR ( Amer) > 60.0 ml/min (>90) 11/05/16 05:10 Est GFR (Non-Af Amer) > 60.0 ml/min 11/05/16 05:10 BUN/Creatinine Ratio 15.0 11/05/16 05:10 Glucose 184 mg/dL (70-105) H 11/05/16 05:10 POC Glucose 184 MG/DL (70 - 105) H 11/05/16 05:12 Hemoglobin A1c % 14.1 % (4.0-6.0) H 10/30/16 11:51 Whole Bld Lactic Acid 1.57 mmol/L (0.60-1.99) 10/30/16 11:51 Calcium 10.0 mg/dL (8.6-10.3) 11/05/16 05:10 Total Bilirubin 0.4 mg/dL (0.3-1.0) 10/30/16 11:51 AST 28 U/L (13-39) 10/30/16 11:51 ALT 19 U/L (7-52) 10/30/16 11:51 Alkaline Phosphatase 78 U/L (34-104) 10/30/16 11:51 Total Protein 6.8 gm/dL (6.0-8.3) 10/30/16 11:51 Albumin 3.9 gm/dL (3.7-5.3) 10/30/16 11:51 Globulin 2.9 gm/dL 10/30/16 11:51 Albumin/Globulin Ratio 1.3 (1.0-1.8) 10/30/16 11:51 Amylase 17 U/L (29-103) L 10/30/16 11:51 Urine Source RANDOM 10/30/16 12:30 Urine Color YELLOW 10/30/16 12:30 Urine Clarity SLIGHT CLOUDY (CLEAR) 10/30/16 12:30 Urine pH 6.0 (4.6 - 8.0) 10/30/16 12:30 Ur Specific [place] 1.010 (1.005-1.030) 10/30/16 12:30 Urine Protein NEGATIVE mg/dL (NEGATIVE) 10/30/16 12:30 Urine Glucose (UA) >=1000 mg/dL (NEGATIVE) H 10/30/16 12:30 Urine Ketones NEGATIVE mg/dL (NEGATIVE) 10/30/16 12:30 Urine Blood NEGATIVE (NEGATIVE) 10/30/16 12:30 Urine Nitrate NEGATIVE (NEGATIVE) 10/30/16 12:30 Urine Bilirubin NEGATIVE (NEGATIVE) 10/30/16 12:30 Urine Urobilinogen 0.2 E.U./dL (0.2 - 1.0) 10/30/16 12:30 Ur Leukocyte Esterase NEGATIVE (NEGATIVE) 10/30/16 12:30 Urine RBC NONE SEEN /hpf (0-5) 10/30/16 12:30 Urine WBC NONE SEEN /hpf (0-5) 10/30/16 12:30 Ur Epithelial Cells OCCASIONAL /lpf (FEW) 10/30/16 12:30 Urine Bacteria NONE SEEN /hpf (NONE SEEN) 10/30/16 12:30 - Physical Exam Vitals and I&O: Vital Signs Temp 98.6 F 11/05/16 00:00 Pulse 78 11/05/16 00:00 Resp 18 11/05/16 00:00 BP 121/68 11/05/16 00:00 Pulse Ox 95 11/05/16 00:00 Intake & Output 11/04/16 11/05/16 11/05/16 18:59 06:59 18:59 Intake Total 1050 90 Balance 1050 90 Weight (lbs) 151 lb 149 lb 11.2 oz Intake: Oral 1050 90 Other: # Voids 3 1 Active Medications: Current Medications Acetaminophen (Tylenol) 650 mg PO Q4HR PRN PRN Reason: Pain Or Fever above 101 Stop: 12/29/16 14:48 Al Hydrox/Mg Hydrox/Simethicone (Maalox) 30 ml PO Q6HR PRN PRN Reason: Dyspepsia Stop: 12/29/16 14:48 Albuterol Sulfate (Albuterol 2.5mg/3ml Neb Ud) 2.5 mg HHN Q2HRT PRN PRN Reason: Shortness of Breath or Wheeze Stop: 12/29/16 14:48 Alprazolam (Xanax) 0.25 mg PO DAILY [facility] PRN Reason: Protocol Stop: 12/30/16 08:59 Last Admin: 11/05/16 09:37 Dose: 0.25 mg Divalproex Sodium (Depakote Dr) 500 mg PO [facility] PRN Reason: Protocol Stop: 12/29/16 20:59 Last Admin: 11/04/16 21:18 Dose: 500 mg Escitalopram Oxalate (Lexapro) 20 mg PO DAILY [facility] PRN Reason: Protocol Stop: 12/30/16 08:59 Last Admin: 11/05/16 09:38 Dose: 20 mg Ferrous Sulfate (Iron) 325 mg PO DAILY [facility] Stop: 12/30/16 08:59 Last Admin: 11/05/16 09:37 Dose: 325 mg Gemfibrozil (Lopid) 600 mg PO BIDAC [facility] Stop: 12/29/16 16:29 Last Admin: 11/05/16 06:32 Dose: 600 mg Sodium Chloride (Nacl 0.9%) 1,000 mls @ 75 mls/hr IV .[id number] [facility] Stop: 12/29/16 14:59 Last Admin: 11/04/16 06:32 Dose: 75 mls/hr Insulin Aspart (Novolog Insulin Sliding Scale) 0 units SUBQ ACHS [facility] PRN Reason: Protocol Stop: 12/30/16 16:29 Last Admin: 11/05/16 06:31 Dose: 4 units Insulin Detemir (Levemir Insulin) 24 units SUBQ HS [facility] Stop: 12/29/16 20:59 Last Admin: 11/04/16 21:19 Dose: 24 units Ipratropium [place] (Atrovent Neb 0.5mg/2.5ml) 0.5 mg HHN Q2HRT PRN PRN Reason: Shortness of Breath or Wheeze Stop: 12/29/16 14:48 Loratadine (Claritin) 10 mg PO DAILY [facility] Stop: 12/30/16 08:59 Last Admin: 11/05/16 09:37 Dose: 10 mg Ondansetron HCl (Zofran) 4 mg IV Q8H PRN PRN Reason: Nausea / Vomiting Stop: 12/29/16 14:48 Quetiapine Fumarate (Seroquel) 400 mg PO HS [facility] PRN Reason: Protocol Stop: 12/29/16 20:59 Last Admin: 11/04/16 21:18 Dose: 400 mg Temazepam (Restoril) 15 mg PO HS PRN; Protocol PRN Reason: SLEEP Stop: 12/29/16 20:59 Last Admin: 11/03/16 21:51 Dose: 15 mg General: weak, alert HEENT: NC/AT, PERRLA Neck: Supple Lungs: CTAB Cardiovascular: RRR, Normal S1, Normal S2, without murmur Abdomen: soft, non-tender, non-distended, positive bowel sound Extremities: excoriation Neurological: alert Internal Medicine Assmt/Plan - Assessment Assessment: RENAL MASS INTRACTABLE DIARRHEA -resolved HYPONATREMIA DM-2 HTN - Plan Plan: am labs case briefer to arrange urology for renal mass resection continue current plan of care Nutritional Asmnt/Malnutr-PDOC - Dietary Evaluation Malnutrition Findings (Please click <Entered> for more info): Nutritional Asmnt/Malnutrition Start: 10/31/16 15: 54 Text: Status: Complete Freq: Document 10/31/16 15:54 GSUN (Rec: 10/31/16 16:05 GSUN [id number]) Nutritional Asmnt/Malnutrition Patient General Information Nutritional Screening Consult Diagnosis Intractable diarrhea, abdominal pain, HTN, DM, hyponatremia Pertinent Medical Hx/Surgical Hx HTN, DM Subjective Information 61 year old female admitted for intractable diarrhea. RD consult for elevated BG. CT abdomen today "solid left renal mass worrisome for malignancy, cholelithiasis, diverticulosis." Spoke to RN Pina and pt, formed stools, no diarrhea since adm. Pt is aware of being diabetic and able to name DM meds, however poor [facility] diet knowledge. RD provided basic DM education, pt was receptive, no further questions at this time. Pt usually with great appetite. UBW 156lb. No muscle fat wasting. Current Diet Order/ Nutrition Support Full liquid Pertinent Medications Iron, Novolog, Levemir, Zofran Pertinent Labs 10/30: 14.1H 10/31: glucose 223H POC glucose 242-399 since adm Nutritional Hx/Data Height 5 ft 1 in Height (Calculated Centimeters) 154.9 Current Weight (lbs) 152 lb 4.8 oz Weight (Calculated Kilograms) 69.1 Weight (Calculated Grams) 22439.1 Usual body Weight (lbs) 156 [place] Body Weight 105 Weight Status Overweight GI Symptoms Skin Integrity/Comment: Lukasz 23. Skin intact. Estimated Nutritional Goals BEE in Kcals: Adj wt of IBW Calories/Kcals/Kg AdjBW 116.8lb/53.1kg Kcals Calculated 1328-1593kcal (25-30kcal/kg) Protein: Adj wt of IBW Protein Calculated 53g (1g/kg) Fluid: ml 1328-1593ml (1ml/kcal) Nutritional Problem 1. Problem Problem Altered nutrition related laboratory values related to Etiology DM aeb Signs/Symptoms: A1c 14.1, glucose 292 on adm Intervention/Recommendation Comments 1. When appropriate to resume diet, recommend [id number]. 2. Provided basic DM nutrition education. Pt with poor prior knowledge, unable to recognize carbohydrates with misconceptions. Pt was receptive of information and appeared with better understnading after education. Pt may benefit from further education. Expected Outcomes/Goals Expected Outcomes/Goals 1. PO intake to resume solid foods and meet at least 75% of estimated nutritional needs.
[2016-11-05] MEDS: Insulin Detemir 100 units/mL 10mL Vial SUBQ SCH (20:44)
[2016-11-06 06:17] LABS: % BASOPHILS 0.1 % (0.0-2.0); % EOSINOPHILS 2.3 % (0.0-5.0); % LYMPHOCYTES 52.5 % (20.0-50.0); % MONOCYTES 11.5 % (2.0-10.0); % NEUTROPHILS 33.6 % (40.0-80.0); HEMATOCRIT 44.8 % (35.0-45.0); HEMOGLOBIN 14.9 gm/dL (11.7-15.5); MEAN CELL VOLUME 92.3 fl (81-100); MEAN CORPUSCULAR HEMOGLOBIN 30.7 pg (27.0-31.0); MEAN CORPUSCULAR HGB CONC 33.3 pg (28.0-36.0); MEAN PLATELET VOLUME 8.2 fl; NEUTROPHILE ABSOLUTE 2.2 Th/cmm (1.8-8.0); PLATELET COUNT 240 Th/cmm (150-400); RED BLOOD COUNT 4.85 Mil/cmm (3.80-5.10); WHITE BLOOD COUNT 6.6 Th/cmm (4.8-10.8)
[2016-11-06] MEDS: INSULIN ASPART SLIDING SCALE 100 UNITS/ML UNIT SUBQ SCH (06:40)
[2016-11-06 06:49] LABS: ANION GAP 11.7 (7.0-16.0); BUN - UREA NITROGEN 17 mg/dL (7-25); BUN/CREATININE RATIO 18.9; CALCIUM SERUM 10.2 mg/dL (8.6-10.3); CARBON DIOXIDE 24.5 mEq/L (21.0-31.0); CHLORIDE 101 mEq/L (98-107); CREATININE - SERUM 0.9 mg/dL (0.6-1.2); GLUCOSE 257 mg/dL (70-105); POTASSIUM SERUM 4.2 mEq/L (3.5-5.1); SODIUM SERUM 133 mEq/L (136-145)
[2016-11-06] MEDS: Ferrous Sulfate 325 MG TAB PO SCH (08:45)
[2016-11-06] MEDS ORDERED: Lactulose 10 Gm/15 mL 30mL UDC PO ONE (09:00)
--- NOTE | 2016-11-06 10:49 | Internal Medicine Prog Note ---
Internal Medicine Subjective - Subjective Service Date: 11/06/16 (dc summary [id number]) Patient is:: awake Patient Complaints of:: bloated Per staff patient has:: no adverse event, agitated, noncompliant, tolerating meds Internal Medicine Objective - Results Result Diagrams: 11/06/16 05:42 11/06/16 05:42 Recent Labs: Laboratory Last Values WBC 6.6 Th/cmm (4.8-10.8) 11/06/16 05:42 RBC 4.85 Mil/cmm (3.80-5.10) 11/06/16 05:42 Hgb 14.9 gm/dL (11.7-15.5) 11/06/16 05:42 Hct 44.8 % (35.0-45.0) 11/06/16 05:42 MCV 92.3 fl (81-100) 11/06/16 05:42 MCH 30.7 pg (27.0-31.0) 11/06/16 05:42 MCHC Differential 33.3 pg (28.0-36.0) 11/06/16 05:42 RDW 13.0 % (11.5-20.0) 11/06/16 05:42 Plt Count 240 Th/cmm (150-400) 11/06/16 05:42 MPV 8.2 fl 11/06/16 05:42 Neutrophils % 33.6 % (40.0-80.0) L 11/06/16 05:42 Band Neutrophils % 3 % (0-10) 11/02/16 06:24 Lymphocytes % 52.5 % (20.0-50.0) H 11/06/16 05:42 Monocytes % 11.5 % (2.0-10.0) H 11/06/16 05:42 Eosinophils % 2.3 % (0.0-5.0) 11/06/16 05:42 Basophils % 0.1 % (0.0-2.0) 11/06/16 05:42 Neutrophils (Manual) 39 % (40-80) L 11/02/16 06:24 Lymphocytes 42 % (20-50) 11/02/16 06:24 Monocytes 13 % (2-10) H 11/02/16 06:24 Eosinophils 3 % (0-5) 11/02/16 06:24 Platelet Estimate ADEQUATE (NORMAL) 11/02/16 06:24 Platelet Morphology NORMAL (NORMAL) 11/02/16 06:24 RBC Morph Micro Appear NORMAL (NORMAL) 11/02/16 06:24 Sodium 133 mEq/L (136-145) L 11/06/16 05:42 Potassium 4.2 mEq/L (3.5-5.1) 11/06/16 05:42 Chloride 101 mEq/L (98-107) 11/06/16 05:42 Carbon Dioxide 24.5 mEq/L (21.0-31.0) 11/06/16 05:42 Anion Gap 11.7 (7.0-16.0) 11/06/16 05:42 BUN 17 mg/dL (7-25) 11/06/16 05:42 Creatinine 0.9 mg/dL (0.6-1.2) 11/06/16 05:42 Est GFR ( Amer) > 60.0 ml/min (>90) 11/06/16 05:42 Est GFR (Non-Af Amer) > 60.0 ml/min 11/06/16 05:42 BUN/Creatinine Ratio 18.9 11/06/16 05:42 Glucose 257 mg/dL (70-105) H 11/06/16 05:42 POC Glucose 232 MG/DL (70 - 105) H 11/06/16 05:14 Hemoglobin A1c % 14.1 % (4.0-6.0) H 10/30/16 11:51 Whole Bld Lactic Acid 1.57 mmol/L (0.60-1.99) 10/30/16 11:51 Calcium 10.2 mg/dL (8.6-10.3) 11/06/16 05:42 Total Bilirubin 0.4 mg/dL (0.3-1.0) 10/30/16 11:51 AST 28 U/L (13-39) 10/30/16 11:51 ALT 19 U/L (7-52) 10/30/16 11:51 Alkaline Phosphatase 78 U/L (34-104) 10/30/16 11:51 Total Protein 6.8 gm/dL (6.0-8.3) 10/30/16 11:51 Albumin 3.9 gm/dL (3.7-5.3) 10/30/16 11:51 Globulin 2.9 gm/dL 10/30/16 11:51 Albumin/Globulin Ratio 1.3 (1.0-1.8) 10/30/16 11:51 Amylase 17 U/L (29-103) L 10/30/16 11:51 Urine Source RANDOM 10/30/16 12:30 Urine Color YELLOW 10/30/16 12:30 Urine Clarity SLIGHT CLOUDY (CLEAR) 10/30/16 12:30 Urine pH 6.0 (4.6 - 8.0) 10/30/16 12:30 Ur Specific [place] 1.010 (1.005-1.030) 10/30/16 12:30 Urine Protein NEGATIVE mg/dL (NEGATIVE) 10/30/16 12:30 Urine Glucose (UA) >=1000 mg/dL (NEGATIVE) H 10/30/16 12:30 Urine Ketones NEGATIVE mg/dL (NEGATIVE) 10/30/16 12:30 Urine Blood NEGATIVE (NEGATIVE) 10/30/16 12:30 Urine Nitrate NEGATIVE (NEGATIVE) 10/30/16 12:30 Urine Bilirubin NEGATIVE (NEGATIVE) 10/30/16 12:30 Urine Urobilinogen 0.2 E.U./dL (0.2 - 1.0) 10/30/16 12:30 Ur Leukocyte Esterase NEGATIVE (NEGATIVE) 10/30/16 12:30 Urine RBC NONE SEEN /hpf (0-5) 10/30/16 12:30 Urine WBC NONE SEEN /hpf (0-5) 10/30/16 12:30 Ur Epithelial Cells OCCASIONAL /lpf (FEW) 10/30/16 12:30 Urine Bacteria NONE SEEN /hpf (NONE SEEN) 10/30/16 12:30 - Physical Exam Vitals and I&O: Vital Signs Temp 98.1 F 11/06/16 08:37 Pulse 79 11/06/16 08:37 Resp 18 11/06/16 08:37 BP 115/72 11/06/16 08:37 Pulse Ox 92 11/06/16 08:37 Intake & Output 11/05/16 11/06/16 11/06/16 18:59 06:59 18:59 Intake Total 1050 90 Balance 1050 90 Weight (lbs) 149 lb 147 lb 14.4 oz Intake: Oral 1050 90 Other: # Voids 3 1 Active Medications: Current Medications Acetaminophen (Tylenol) 650 mg PO Q4HR PRN PRN Reason: Pain Or Fever above 101 Stop: 12/29/16 14:48 Al Hydrox/Mg Hydrox/Simethicone (Maalox) 30 ml PO Q6HR PRN PRN Reason: Dyspepsia Stop: 12/29/16 14:48 Albuterol Sulfate (Albuterol 2.5mg/3ml Neb Ud) 2.5 mg HHN Q2HRT PRN PRN Reason: Shortness of Breath or Wheeze Stop: 12/29/16 14:48 Alprazolam (Xanax) 0.25 mg PO DAILY [facility] PRN Reason: Protocol Stop: 12/30/16 08:59 Last Admin: 11/06/16 08:45 Dose: 0.25 mg Divalproex Sodium (Depakote Dr) 500 mg PO [facility] PRN Reason: Protocol Stop: 12/29/16 20:59 Last Admin: 11/05/16 20:40 Dose: 500 mg Escitalopram Oxalate (Lexapro) 20 mg PO DAILY [facility] PRN Reason: Protocol Stop: 12/30/16 08:59 Last Admin: 11/06/16 08:45 Dose: 20 mg Ferrous Sulfate (Iron) 325 mg PO DAILY [facility] Stop: 12/30/16 08:59 Last Admin: 11/06/16 08:45 Dose: 325 mg Gemfibrozil (Lopid) 600 mg PO BIDAC [facility] Stop: 12/29/16 16:29 Last Admin: 11/06/16 06:41 Dose: 600 mg Insulin Aspart (Novolog Insulin Sliding Scale) 0 units SUBQ ACHS [facility] PRN Reason: Protocol Stop: 12/30/16 16:29 Last Admin: 11/06/16 06:40 Dose: 6 units Insulin Detemir (Levemir Insulin) 24 units SUBQ HS [facility] Stop: 12/29/16 20:59 Last Admin: 11/05/16 20:44 Dose: 24 units Ipratropium [place] (Atrovent Neb 0.5mg/2.5ml) 0.5 mg HHN Q2HRT PRN PRN Reason: Shortness of Breath or Wheeze Stop: 12/29/16 14:48 Loratadine (Claritin) 10 mg PO DAILY [facility] Stop: 12/30/16 08:59 Last Admin: 11/06/16 08:45 Dose: 10 mg Quetiapine Fumarate (Seroquel) 400 mg PO HS [facility] PRN Reason: Protocol Stop: 12/29/16 20:59 Last Admin: 11/05/16 20:40 Dose: 400 mg Temazepam (Restoril) 15 mg PO HS PRN; Protocol PRN Reason: SLEEP Stop: 12/29/16 20:59 Last Admin: 11/03/16 21:51 Dose: 15 mg General: weak, alert HEENT: NC/AT, PERRLA Neck: Supple Lungs: CTAB Cardiovascular: RRR, Normal S1, Normal S2, without murmur Abdomen: soft, non-tender, non-distended, positive bowel sound Extremities: excoriation Neurological: alert Internal Medicine Assmt/Plan - Assessment Assessment: RENAL MASS INTRACTABLE DIARRHEA -resolved HYPONATREMIA DM-2 HTN Nutritional Asmnt/Malnutr-PDOC - Dietary Evaluation Malnutrition Findings (Please click <Entered> for more info): Nutritional Asmnt/Malnutrition Start: 10/31/16 15: 54 Text: Status: Complete Freq: Document 10/31/16 15:54 GSUN (Rec: 10/31/16 16:05 GSUN [id number]) Nutritional Asmnt/Malnutrition Patient General Information Nutritional Screening Consult Diagnosis Intractable diarrhea, abdominal pain, HTN, DM, hyponatremia Pertinent Medical Hx/Surgical Hx HTN, DM Subjective Information 61 year old female admitted for intractable diarrhea. RD consult for elevated BG. CT abdomen today "solid left renal mass worrisome for malignancy, cholelithiasis, diverticulosis." Spoke to RN Pina and pt, formed stools, no diarrhea since adm. Pt is aware of being diabetic and able to name DM meds, however poor [facility] diet knowledge. RD provided basic DM education, pt was receptive, no further questions at this time. Pt usually with great appetite. UBW 156lb. No muscle fat wasting. Current Diet Order/ Nutrition Support Full liquid Pertinent Medications Iron, Novolog, Levemir, Zofran Pertinent Labs 10/30: 14.1H 10/31: glucose 223H POC glucose 242-399 since adm Nutritional Hx/Data Height 5 ft 1 in Height (Calculated Centimeters) 154.9 Current Weight (lbs) 152 lb 4.8 oz Weight (Calculated Kilograms) 69.1 Weight (Calculated Grams) 07241.1 Usual body Weight (lbs) 156 [place] Body Weight 105 Weight Status Overweight GI Symptoms Skin Integrity/Comment: Lukasz 23. Skin intact. Estimated Nutritional Goals BEE in Kcals: Adj wt of IBW Calories/Kcals/Kg AdjBW 116.8lb/53.1kg Kcals Calculated 1328-1593kcal (25-30kcal/kg) Protein: Adj wt of IBW Protein Calculated 53g (1g/kg) Fluid: ml 1328-1593ml (1ml/kcal) Nutritional Problem 1. Problem Problem Altered nutrition related laboratory values related to Etiology DM aeb Signs/Symptoms: A1c 14.1, glucose 292 on adm Intervention/Recommendation Comments 1. When appropriate to resume diet, recommend [id number]. 2. Provided basic DM nutrition education. Pt with poor prior knowledge, unable to recognize carbohydrates with misconceptions. Pt was receptive of information and appeared with better understnading after education. Pt may benefit from further education. Expected Outcomes/Goals Expected Outcomes/Goals 1. PO intake to resume solid foods and meet at least 75% of estimated nutritional needs.
[2016-11-06] MEDS ORDERED: INSULIN ASPART SLIDING SCALE 100 UNITS/ML UNIT SUBQ SCH ×2 (11:30→16:30)
--- NOTE | 2016-11-06 16:57 | Discharge Summary ---
DATE OF DISCHARGE: 11/05/2016 DISCHARGE DIAGNOSES: Renal mass, intractable diarrhea, resolved; hyponatremia resolved; type 2 diabetes, hypertension. HISTORY OF PRESENT ILLNESS: This is a 61-year-old female, who is a resident of [facility], who is brought here to [facility] for 1-day history of diarrhea, abdominal pain, cramping and nausea. According to the patient after she ate dinner last night, she had 3 episodes of diarrhea and around the mid of the night the patient stated that she even had more diarrhea. For that reason, the patient was brought to the ER by caregiver. PHYSICAL EXAMINATION: GENERAL: The patient is well developed, well nourished, in no acute distress. VITAL SIGNS: Stable. HEENT: Head: Normocephalic and atraumatic. NECK: Supple. No mass. LUNGS: Clear bilaterally. HEART: Regular rate and rhythm. ABDOMEN: Soft and nontender. HOSPITAL COURSE: During the hospital stay, the patient was admitted to the Med/Surg unit. The patient had a GI consultation. The patient was also kept on IV fluids for hydration. The patient had a CT of the abdomen and pelvis upon admission and the impression is ____ renal mass, worrisome for malignancy. A CT scan following admission of IV contrast would provide additional characterization, bilateral perinephritic stranding. The patient had a repeat CT of the abdomen and pelvis with IV contrast on 11/01/2016 and the impression is 6 x 5 cm inferior pole left renal mass with a heterogeneous and irregular enhancement primarily along the peripheral portion. This may represent neoplastic etiology such as renal cell carcinoma. Other less likely mass lesions would include renal oncocytoma, few borderline prominent retroperitoneal lymph nodes, nonspecific bilateral perinephric inflammatory changes. Also abdominal ultrasound was also obtained and the impression is 5.5 x 5.6 cm left renal mass most likely due to neoplastic processes. 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 The patient did not have any diarrheas during this hospital stay, for this reason, the patient is stable for discharge. CONDITION UPON DISCHARGE: Fair. DISPOSITION: [facility]. JOB# [id number]
== END 2016-11-06 12:30 | disposition home or self-care (01) | DRG 468 ==
LOC: ER 11:24 → MSI 13:50
PROVIDERS: ADMIT Internal Medicine; ATTEND Internal Medicine
DX: N28.89 Other specified disorders of kidney and ureter (principal); F25.9 Schizoaffective disorder, unspecified; I10 Essential (primary) hypertension; R19.7 Diarrhea, unspecified; E87.1 Hypo-osmolality and hyponatremia; E11.9 Type 2 diabetes mellitus without complications; R10.9 Unspecified abdominal pain; Z82.49 Family history of ischemic heart disease and other diseases of the circulatory system; Z83.3 Family history of diabetes mellitus; Z82.3 Family history of stroke
CPT/HCPCS: 36415-UA; 76700-TC; 80048-TC; 80053-TC; 81001-TC; 82150-TC; 82948-90; 83036-90; 83605; 85007-TC; 85025-TC; 85027-TC; 87230-TC; 94760; J1815; J7030; Q9967; Z7610